=== PATIENT | female | born 1945 | race Caucasian/White ===

== ENCOUNTER 2024-06-05 14:46 | Inpatient (IN) | payer MEDICARE, MEDICAID ==
[~2024-06-05] VITALS: Ht 152.4 cm; Wt 47.0 kg
[2024-06-05] MEDS ORDERED: LOSA-382 PO (15:15)
[2024-06-05] MEDS ORDERED: FURO40TA6 PO (15:15)
[2024-06-05] MEDS ORDERED: ALEN70TA65 PO (15:15)
[2024-06-05] MEDS ORDERED: ATOR40TA28 PO (15:15)
[2024-06-05] MEDS ORDERED: CARV12 PO (15:15)
[2024-06-05] MEDS ORDERED: EMPA25TA3 PO (15:15)
[2024-06-05] MEDS ORDERED: RISP-31 PO (15:15)
[2024-06-05] MEDS ORDERED: HYDR25TA84 PO (15:15)
[2024-06-05] MEDS ORDERED: GLIM-8 PO (15:15)
[2024-06-05] MEDS ORDERED: MIRA25TA PO (15:15)
[2024-06-05 15:42] LABS: BASOPHILS % (AUTO) 1.4 % (0.0-2.0); EOSINOPHILS % (AUTO) 3.5 % (1.0-6.0); HEMATOCRIT 40.2 % (36-46); HEMOGLOBIN 13.2 g/dL (12.0-16.0); LYMPHOCYTES # (AUTO) 1.2 K/uL (1.0-4.8); LYMPHOCYTES % (AUTO) 23.7 % (22.0-44.0); MEAN CORPUSCULAR HEMOGLOBIN 30.8 pg (26.0-34.0); MEAN CORPUSCULAR VOLUME 94 fL (80-100); MONOCYTES # (AUTO) 0.4 K/uL (0.1-1.0); MONOCYTES % (AUTO) 8.9 % (2.0-9.0); NEUTROPHILS # (AUTO) 3.1 K/uL (1.8-7.7); NEUTROPHILS % (AUTO) 62.5 % (40.0-70.0); PLATELET COUNT (AUTO) 237 K/uL (150-450); RED CELL DISTRIBUTION WIDTH 16.3 % (11.5-14.5)
[2024-06-05 16:04] LABS: ANION GAP 8 mmol/L (8-16); CALCIUM, TOTAL 8.8 mg/dL (8.8-10.5); CARBON DIOXIDE 26 mmol/L (22-29); CHLORIDE 98 mmol/L (98-107); CREATININE 0.65 mg/dL (0.60-1.30); GLOMERULAR FILTR. RATE CALC > 60 mL/min (>60); GLUCOSE,RANDOM 350 mg/dL (70-110); POTASSIUM 3.9 mmol/L (3.5-5.1); SODIUM SERUM 132 mmol/L (136-145); UREA NITROGEN, BLOOD 19 mg/dL (7-18)
[2024-06-05 16:05] LABS: ALANINE AMINOTRANSFERASE 18 U/L (12-78); ALBUMIN 2.6 g/dL (3.4-5.0); ALKALINE PHOSPHATASE 275 U/L (46-116); ASPARTATE AMINOTRANSFERASE 18 U/L (15-37); BILIRUBIN,TOTAL 0.4 mg/dL (0.1-1.0); CREATINE KINASE, TOTAL ONLY 45 U/L (26-192); TOTAL PROTEIN, SERUM 7.1 g/dL (6.4-8.2)
[2024-06-05 16:10] LABS: THYROID STIMULATING HORMONE 0.46 uIU/mL (0.36-3.74)
[2024-06-05 16:20] LABS: TROPONIN I-HIGH SENSITIVITY 6 ng/L (<51)
[2024-06-05 16:24] LABS: B-TYPE NATRIURETIC PEPTIDE 28 pg/mL (0-100)
[2024-06-05 19:14] LABS: APPEARANCE,URINE CLEAR (CLEAR); BILIRUBIN,URINE NEGATIVE (NEGATIVE); COLOR,URINE COLORLESS (YELLOW); GLUCOSE, URINE (UA) >=1000 mg/dL (NEGATIVE); KETONES,URINE NEGATIVE (NEGATIVE); LEUKOCYTE ESTERASE ,URINE NEGATIVE (NEGATIVE); NITRATE,URINE NEGATIVE (NEGATIVE); OCCULT BLOOD,URINE NEGATIVE (NEGATIVE); PROTEIN,URINE NEGATIVE (NEGATIVE); SPECIFIC GRAVITIY, URINE 1.014 (1.003-1.030); UROBILINOGEN,URINE <=1.0 mg/dL (<=1.0)
[2024-06-05] MEDS: LORazepam 2 MG TABLET PO PRN (19:31)
[2024-06-05] MEDS: HALOPERIDOL 5 MG TABLET PO PRN (19:32)
[2024-06-05] MEDS: HydrALAZINE HCL 25 MG TABLET PO ONE (19:32)
[2024-06-05 19:45] LABS: BACTERIA,URINE None Seen /HPF (None Seen); RBC,URINE 0-2 /HPF (0-2); WBC,URINE 0-2 /HPF (0-5)
[2024-06-05] MEDS: ZOLPIDEM TARTRATE 10 MG TABLET PO PRN (20:44)
[2024-06-06] MEDS: HydrALAZINE HCL 25 MG TABLET PO ONE (05:19)
[2024-06-06] MEDS: LOSARTAN POTASSIUM 50 MG TABLET PO ONE (05:20)
[2024-06-06 05:58] LABS: HEMOGLOBIN A1C 10.7 % (3.8-5.6)
[2024-06-06 06:08] LABS: CHOL/HDL RATIO 2.1 (3.9-5.7)
[2024-06-06] MEDS: CARVEDILOL 6.25 MG TABLET PO ONE (07:14)
[2024-06-06 11:32] LABS: BASOPHILS % (AUTO) 0.9 % (0.0-2.0); EOSINOPHILS % (AUTO) 2.1 % (1.0-6.0); HEMATOCRIT 44.7 % (36-46); HEMOGLOBIN 14.6 g/dL (12.0-16.0); LYMPHOCYTES # (AUTO) 0.9 K/uL (1.0-4.8); LYMPHOCYTES % (AUTO) 14.5 % (22.0-44.0); MEAN CORPUSCULAR HEMOGLOBIN 30.7 pg (26.0-34.0); MEAN CORPUSCULAR HGB CONC 32.7 G/dL (31.0-37.0); MEAN CORPUSCULAR VOLUME 94 fL (80-100); MONOCYTES # (AUTO) 0.3 K/uL (0.1-1.0); MONOCYTES % (AUTO) 4.6 % (2.0-9.0); NEUTROPHILS # (AUTO) 4.6 K/uL (1.8-7.7); NEUTROPHILS % (AUTO) 77.9 % (40.0-70.0); PLATELET COUNT (AUTO) 270 K/uL (150-450); RED BLOOD CELL COUNT(AUTO) 4.77 MIL/uL (4.00-5.20); RED CELL DISTRIBUTION WIDTH 15.7 % (11.5-14.5); WHITE BLOOD COUNT (AUTO) 5.9 K/uL (4.5-11.0)
[2024-06-06 13:14] LABS: ANION GAP 6 mmol/L (8-16); CALCIUM, TOTAL 9.1 mg/dL (8.8-10.5); CARBON DIOXIDE 29 mmol/L (22-29); CHLORIDE 96 mmol/L (98-107); CREATININE 0.77 mg/dL (0.60-1.30); GLOMERULAR FILTR. RATE CALC > 60 mL/min (>60); POTASSIUM 4.3 mmol/L (3.5-5.1); SODIUM SERUM 131 mmol/L (136-145); UREA NITROGEN, BLOOD 18 mg/dL (7-18)
[2024-06-06 13:16] LABS: GLUCOSE,RANDOM 424 mg/dL (70-110)
[2024-06-06] MEDS: INSULIN REGULAR, HUMAN 100 UNITS/ML IVP ONE (14:21)
[2024-06-06 14:28] LABS: COVID AG,FIA SOURCE NASAL SWAB
[2024-06-06 15:02] LABS: SARS-COV2 (COVID) ANTIGEN,FIA Negative (Negative)
[2024-06-06] MEDS ORDERED: DEXTROSE 50%-WATER 25 GM/50 ML SYRINGE IVP PRN (19:00)
[2024-06-06 19:21] LABS: GLUCOMETER DEV NAME(LOC) ERT.6; GLUCOSE,POINT OF CARE 285 MG/DL (70-110)
[2024-06-06 19:21] LABS: GLUCOMETER DEV NAME(LOC) ERT.6; GLUCOSE,POINT OF CARE 551 MG/DL (70-110)
[2024-06-06 22:37] VITALS: RESP 18
[2024-06-06] MEDS: INSULIN LISPRO 100 UNITS/ML SQ PRN (23:15)
[2024-06-06 23:26] LABS: GLUCOMETER DEV NAME(LOC) 3E.I 2; GLUCOSE,POINT OF CARE 374 MG/DL (70-110)
[2024-06-07 05:40] LABS: GLUCOMETER DEV NAME(LOC) 3E.I 2; GLUCOSE,POINT OF CARE 187 MG/DL (70-110)
[2024-06-07 09:00] VITALS: BP 121/60; PULSE 69; RESP 18; TEMP 98; O2SAT 98
[2024-06-07 11:26] LABS: GLUCOMETER DEV NAME(LOC) 3E.I 2; GLUCOSE,POINT OF CARE 468 MG/DL (70-110)
[2024-06-07] MEDS ORDERED: NICOTINE 14 MG/24 HOUR PATCH TD PRN (11:45)
[2024-06-07] MEDS ORDERED: ONDANSETRON 4 MG TABLET PO PRN (11:45)
[2024-06-07] MEDS ORDERED: CloNIDine HCL 0.1 MG TABLET PO PRN (11:45)
[2024-06-07] MEDS ORDERED: PETROLATUM,WHITE 28 GM JELLY TP PRN (11:45)
[2024-06-07] MEDS: INSULIN LISPRO 100 UNITS/ML SQ PRN (11:58)
[2024-06-07] MEDS: HydrALAZINE HCL 25 MG TABLET PO SCH (13:00)
[2024-06-07 13:36] LABS: GLUCOMETER DEV NAME(LOC) 3E.I 2; GLUCOSE,POINT OF CARE 406 MG/DL (70-110)
[2024-06-07 14:08] VITALS: BP 148/97; PULSE 89; RESP 18; O2SAT 98
[2024-06-07] MEDS: LORazepam 0.5 MG TABLET PO PRN (14:09)
[2024-06-07] MEDS: RisperiDONE 0.5 MG TABLET PO SCH (14:54)
[2024-06-07] MEDS: INSULIN LISPRO 100 UNITS/ML SQ ONE (16:03)
[2024-06-07 17:06] LABS: GLUCOMETER DEV NAME(LOC) 3E.I 2; GLUCOSE,POINT OF CARE 118 MG/DL (70-110)
[2024-06-07] MEDS: CARVEDILOL 12.5 MG TABLET PO SCH (17:59)
[2024-06-07 20:31] LABS: GLUCOMETER DEV NAME(LOC) 3E.I 2; GLUCOSE,POINT OF CARE 147 MG/DL (70-110)
[2024-06-08 05:35] LABS: GLUCOMETER DEV NAME(LOC) 3E.I 2; GLUCOSE,POINT OF CARE 270 MG/DL (70-110)
[2024-06-08] MEDS: GLIMEPIRIDE 4 MG TABLET PO SCH (06:35)
[2024-06-08 09:01] VITALS: BP 146/65; PULSE 85; RESP 18; TEMP 97.9; O2SAT 97
[2024-06-08] MEDS: LOSARTAN POTASSIUM 50 MG TABLET PO SCH (09:26)
[2024-06-08] MEDS: EMPAGLIFLOZIN 25 MG TABLET PO SCH (09:26)
[2024-06-08] MEDS: ATORVASTATIN CALCIUM 40 MG TABLET PO SCH (09:31)
[2024-06-08] MEDS: FUROSEMIDE 40 MG TABLET PO SCH (09:31)
[2024-06-08 11:41] LABS: GLUCOMETER DEV NAME(LOC) 3EX.2; GLUCOSE,POINT OF CARE 409 MG/DL (70-110)
[2024-06-08 13:38] LABS: HEMOGLOBIN A1C 10.2 % (3.8-5.6)
[2024-06-08 14:00] LABS: THYROID STIMULATING HORMONE 0.64 uIU/mL (0.36-3.74)
[2024-06-08 16:41] VITALS: BP 141/72; PULSE 78; RESP 18; TEMP 97.5; O2SAT 98
[2024-06-08 16:45] LABS: GLUCOMETER DEV NAME(LOC) 3EX.2; GLUCOSE,POINT OF CARE 236 MG/DL (70-110)
[2024-06-08 21:30] VITALS: BP 110/60; PULSE 69; RESP 17; TEMP 98; O2SAT 97
[2024-06-08] MEDS: IBUPROFEN 400 MG TABLET PO PRN (21:34)
[2024-06-08 21:51] LABS: GLUCOMETER DEV NAME(LOC) 3E.I 2; GLUCOSE,POINT OF CARE 244 MG/DL (70-110)
[2024-06-09 07:00] LABS: GLUCOMETER DEV NAME(LOC) 3E.I 2; GLUCOSE,POINT OF CARE 225 MG/DL (70-110)
[2024-06-09 07:32] LABS: HEMOGLOBIN A1C 10.4 % (3.8-5.6)
[2024-06-09 08:01] LABS: CHOL/HDL RATIO 2.7 (3.9-5.7); THYROID STIMULATING HORMONE 0.72 uIU/mL (0.36-3.74)
[2024-06-09 08:24] VITALS: BP 149/73; PULSE 75; RESP 18; TEMP 97.6; O2SAT 96
[2024-06-09 11:46] LABS: GLUCOMETER DEV NAME(LOC) 3E.I 2; GLUCOSE,POINT OF CARE 368 MG/DL (70-110)
[2024-06-09 11:48] LABS: APPEARANCE,URINE CLEAR (CLEAR); BILIRUBIN,URINE NEGATIVE (NEGATIVE); COLOR,URINE COLORLESS (YELLOW); GLUCOSE, URINE (UA) >=1000 mg/dL (NEGATIVE); KETONES,URINE NEGATIVE (NEGATIVE); LEUKOCYTE ESTERASE ,URINE NEGATIVE (NEGATIVE); NITRATE,URINE NEGATIVE (NEGATIVE); OCCULT BLOOD,URINE NEGATIVE (NEGATIVE); PROTEIN,URINE NEGATIVE (NEGATIVE); SPECIFIC GRAVITIY, URINE 1.018 (1.003-1.030); UROBILINOGEN,URINE <=1.0 mg/dL (<=1.0)
[2024-06-09 12:01] LABS: BACTERIA,URINE None Seen /HPF (None Seen); RBC,URINE None Seen /HPF (0-2); SQUAMOUS EPITHELIAL CELL,UR Few /LPF (None Seen); WBC,URINE None Seen /HPF (0-5)
[2024-06-09 12:04] LABS: ALCOHOL, URINE DRUG SCREEN NEGATIVE (NEGATIVE); AMPHET/METH SCREEN,URINE NEGATIVE (NEGATIVE); BARBITURATE SCREEN, URINE NEGATIVE (NEGATIVE); BENZODIAZEPINES SCREEN,URINE NEGATIVE (NEGATIVE); CANNABINOID SCREEN,URINE NEGATIVE (NEGATIVE); COCAINE SCREEN,URINE NEGATIVE (NEGATIVE); METHADONE SCREEN, URINE NEGATIVE (NEGATIVE); OPIATE SCREEN,URINE NEGATIVE (NEGATIVE); PHENCYCLIDINE SCREEN,URINE NEGATIVE (NEGATIVE)
[2024-06-09 13:30] VITALS: BP 115/62; PULSE 69; RESP 18; O2SAT 99
[2024-06-09] MEDS: MAG HYDROX/ALUMINUM HYD/SIMETH ES 30 ML SUSPENSION UDCUP PO PRN (13:47)
[2024-06-09 14:08] VITALS: BP 115/62; PULSE 69; RESP 18; O2SAT 99
[2024-06-09] MEDS: ACETAMINOPHEN 325 MG TABLET PO PRN (14:13)
[2024-06-09 15:13] VITALS: RESP 16
[2024-06-09] MEDS: GLIMEPIRIDE 4 MG TABLET PO SCH (16:22)
[2024-06-09 16:45] LABS: GLUCOMETER DEV NAME(LOC) 3E.I 2; GLUCOSE,POINT OF CARE 222 MG/DL (70-110)
[2024-06-09 17:43] VITALS: BP 145/76; PULSE 73; RESP 18
[2024-06-09 21:05] VITALS: BP 123/51; PULSE 74; RESP 18; TEMP 97.8; O2SAT 98
[2024-06-09 21:41] LABS: GLUCOMETER DEV NAME(LOC) 3E.I 2; GLUCOSE,POINT OF CARE 154 MG/DL (70-110)
[2024-06-09] MEDS: ZOLPIDEM TARTRATE 5 MG TABLET PO PRN (22:23)
[2024-06-10 06:45] LABS: GLUCOMETER DEV NAME(LOC) 3E.I 2; GLUCOSE,POINT OF CARE 146 MG/DL (70-110)
[2024-06-10 08:54] VITALS: BP 119/52; PULSE 64; RESP 18; TEMP 97.4; O2SAT 97
[2024-06-10 09:43] VITALS: BP 119/52; PULSE 64; RESP 18; TEMP 97.4
[2024-06-10 10:43] VITALS: BP 121/67; PULSE 72; RESP 17; TEMP 98
[2024-06-10 12:01] LABS: GLUCOMETER DEV NAME(LOC) 3EX.2; GLUCOSE,POINT OF CARE 321 MG/DL (70-110)
[2024-06-10 16:21] LABS: GLUCOMETER DEV NAME(LOC) 3EX.2; GLUCOSE,POINT OF CARE 114 MG/DL (70-110)
[2024-06-10 21:31] LABS: GLUCOMETER DEV NAME(LOC) 3E.I 2; GLUCOSE,POINT OF CARE 290 MG/DL (70-110)
[2024-06-10 22:48] VITALS: BP 128/68; PULSE 77; RESP 18; TEMP 97.6
[2024-06-11 00:30] VITALS: BP 123/75; PULSE 75; RESP 18; O2SAT 96
[2024-06-11 06:36] LABS: GLUCOMETER DEV NAME(LOC) 3E.I 2; GLUCOSE,POINT OF CARE 161 MG/DL (70-110)
[2024-06-11 09:01] VITALS: BP 132/60; PULSE 72; RESP 18; TEMP 98.1; O2SAT 97
[2024-06-11 11:51] LABS: GLUCOMETER DEV NAME(LOC) 3EX.2; GLUCOSE,POINT OF CARE 256 MG/DL (70-110)
[2024-06-11 17:15] LABS: GLUCOMETER DEV NAME(LOC) 3E.I 2; GLUCOSE,POINT OF CARE 305 MG/DL (70-110)
[2024-06-11 20:16] LABS: GLUCOMETER DEV NAME(LOC) 3E.I 2; GLUCOSE,POINT OF CARE 221 MG/DL (70-110)
[2024-06-11 22:03] VITALS: BP 125/67; PULSE 79; RESP 18; TEMP 97.9
[2024-06-12] MEDS: LOPERAMIDE HCL 2 MG CAPSULE PO PRN (02:58)
[2024-06-12 05:41] LABS: GLUCOMETER DEV NAME(LOC) 3E.I 2; GLUCOSE,POINT OF CARE 248 MG/DL (70-110)
[2024-06-12 08:48] VITALS: BP 143/75; PULSE 69; RESP 18; TEMP 97.4; O2SAT 98
[2024-06-12 11:50] LABS: GLUCOMETER DEV NAME(LOC) 3EX.2; GLUCOSE,POINT OF CARE 166 MG/DL (70-110)
[2024-06-12 16:46] LABS: GLUCOMETER DEV NAME(LOC) 3EX.2; GLUCOSE,POINT OF CARE 269 MG/DL (70-110)
[2024-06-12 20:58] VITALS: BP 122/63; PULSE 72; RESP 18; TEMP 98.2; O2SAT 97
[2024-06-12 22:46] LABS: GLUCOMETER DEV NAME(LOC) 3EX.2; GLUCOSE,POINT OF CARE 238 MG/DL (70-110)
[2024-06-13 05:56] LABS: GLUCOMETER DEV NAME(LOC) 3E.I 2; GLUCOSE,POINT OF CARE 125 MG/DL (70-110)
[2024-06-13 08:21] VITALS: BP 150/58; PULSE 66; RESP 18; TEMP 97.8; O2SAT 98
[2024-06-13 11:36] LABS: GLUCOMETER DEV NAME(LOC) 3E.I 2; GLUCOSE,POINT OF CARE 306 MG/DL (70-110)
[2024-06-13 13:09] VITALS: BP 122/61; PULSE 71
[2024-06-13 16:31] LABS: GLUCOMETER DEV NAME(LOC) 3E.I 2; GLUCOSE,POINT OF CARE 325 MG/DL (70-110)
[2024-06-13 20:57] VITALS: BP 113/61; PULSE 75; RESP 18; TEMP 97.8; O2SAT 98
[2024-06-13 21:06] LABS: GLUCOMETER DEV NAME(LOC) 3E.I 2; GLUCOSE,POINT OF CARE 179 MG/DL (70-110)
[2024-06-14 06:11] LABS: GLUCOMETER DEV NAME(LOC) 3E.I 2; GLUCOSE,POINT OF CARE 122 MG/DL (70-110)
[2024-06-14 10:23] VITALS: RESP 18
[2024-06-14 10:56] VITALS: BP_SYST 165; BP_SYST 175; BP_DIAS 64; BP_DIAS 65; PULSE 66; RESP 16; RESP 19; TEMP 98; TEMP 98.2; O2SAT 98
[2024-06-14 11:23] VITALS: RESP 18
[2024-06-14 11:40] LABS: GLUCOMETER DEV NAME(LOC) 3EX.2; GLUCOSE,POINT OF CARE 293 MG/DL (70-110)
[2024-06-14 16:45] VITALS: BP 106/55; RESP 18
[2024-06-14 16:51] LABS: GLUCOMETER DEV NAME(LOC) 3EX.2; GLUCOSE,POINT OF CARE 212 MG/DL (70-110)
[2024-06-14 20:10] LABS: GLUCOMETER DEV NAME(LOC) 3E.I 2; GLUCOSE,POINT OF CARE 157 MG/DL (70-110)
[2024-06-14 21:26] VITALS: BP 145/56; PULSE 71; RESP 18; TEMP 97.9
[2024-06-15 05:41] LABS: GLUCOMETER DEV NAME(LOC) 3E.I 2; GLUCOSE,POINT OF CARE 122 MG/DL (70-110)
[2024-06-15 09:39] VITALS: BP 172/72; PULSE 71; RESP 18; TEMP 97.8; O2SAT 99
[2024-06-15 11:39] VITALS: BP 155/62; PULSE 69; RESP 18; O2SAT 99
[2024-06-15 11:45] LABS: GLUCOMETER DEV NAME(LOC) 3E.I 2; GLUCOSE,POINT OF CARE 328 MG/DL (70-110)
[2024-06-15 12:39] VITALS: RESP 18
[2024-06-15 16:55] LABS: GLUCOMETER DEV NAME(LOC) 3EX.2; GLUCOSE,POINT OF CARE 135 MG/DL (70-110)
[2024-06-15 20:25] VITALS: BP 133/76; PULSE 74; RESP 18; TEMP 97.6; O2SAT 98
[2024-06-15 20:50] LABS: GLUCOMETER DEV NAME(LOC) 3E.I 2; GLUCOSE,POINT OF CARE 164 MG/DL (70-110)
[2024-06-16 07:01] LABS: GLUCOMETER DEV NAME(LOC) 3E.I 2; GLUCOSE,POINT OF CARE 200 MG/DL (70-110)
[2024-06-16 08:56] VITALS: BP 143/58; PULSE 90; RESP 16; TEMP 96.7; O2SAT 95
[2024-06-16 11:50] LABS: GLUCOMETER DEV NAME(LOC) 3E.I 2; GLUCOSE,POINT OF CARE 317 MG/DL (70-110)
[2024-06-16 17:30] LABS: GLUCOMETER DEV NAME(LOC) 3E.I 2; GLUCOSE,POINT OF CARE 115 MG/DL (70-110)
[2024-06-16 20:40] LABS: GLUCOMETER DEV NAME(LOC) 3E.I 2; GLUCOSE,POINT OF CARE 192 MG/DL (70-110)
[2024-06-16 21:47] VITALS: RESP 18
[2024-06-17 06:16] LABS: GLUCOMETER DEV NAME(LOC) 3E.I 2; GLUCOSE,POINT OF CARE 112 MG/DL (70-110)
[2024-06-17 08:29] VITALS: BP 162/65; PULSE 67; RESP 16; TEMP 97.6; O2SAT 97
[2024-06-17 12:35] LABS: GLUCOMETER DEV NAME(LOC) 3E.I 2; GLUCOSE,POINT OF CARE 387 MG/DL (70-110)
[2024-06-17 16:36] LABS: GLUCOMETER DEV NAME(LOC) 3E.I 2; GLUCOSE,POINT OF CARE 206 MG/DL (70-110)
[2024-06-17 20:01] LABS: GLUCOMETER DEV NAME(LOC) 3E.I 2; GLUCOSE,POINT OF CARE 122 MG/DL (70-110)
[2024-06-17 21:17] VITALS: BP 152/60; PULSE 72; RESP 18; TEMP 97.4; O2SAT 97
[2024-06-18 06:16] LABS: GLUCOMETER DEV NAME(LOC) 3EX.2; GLUCOSE,POINT OF CARE 256 MG/DL (70-110)
[2024-06-18 08:40] VITALS: BP 123/66; PULSE 67; RESP 17; TEMP 97.5; O2SAT 97
[2024-06-18 11:46] LABS: GLUCOMETER DEV NAME(LOC) 3EX.2; GLUCOSE,POINT OF CARE 163 MG/DL (70-110)
[2024-06-18] MEDS: MAGNESIUM HYDROXIDE SUSPENSION 30 ML UDCUP PO PRN (15:30)
[2024-06-18 17:30] LABS: GLUCOMETER DEV NAME(LOC) 3EX.2; GLUCOSE,POINT OF CARE 205 MG/DL (70-110)
[2024-06-18 20:26] LABS: GLUCOMETER DEV NAME(LOC) 3EX.2; GLUCOSE,POINT OF CARE 184 MG/DL (70-110)
[2024-06-18 20:46] VITALS: BP 159/41; PULSE 58; RESP 18; TEMP 97.6; O2SAT 98
[2024-06-19 04:35] VITALS: BP 181/92; PULSE 61; RESP 18; TEMP 97.6; O2SAT 98
[2024-06-19 05:35] VITALS: RESP 18
[2024-06-19 05:36] VITALS: BP 141/57; PULSE 58; RESP 18; TEMP 97.7; O2SAT 98
[2024-06-19 06:21] LABS: GLUCOMETER DEV NAME(LOC) 3EX.2; GLUCOSE,POINT OF CARE 91 MG/DL (70-110)
[2024-06-19 08:49] VITALS: BP 153/85; PULSE 74; RESP 18; TEMP 98; O2SAT 95
[2024-06-19 11:56] LABS: GLUCOMETER DEV NAME(LOC) 3EX.2; GLUCOSE,POINT OF CARE 348 MG/DL (70-110)
[2024-06-19 13:42] VITALS: BP 146/82; PULSE 78; RESP 19; TEMP 98; O2SAT 96
[2024-06-19 17:21] LABS: GLUCOMETER DEV NAME(LOC) 3EX.2; GLUCOSE,POINT OF CARE 132 MG/DL (70-110)
[2024-06-19 20:16] LABS: GLUCOMETER DEV NAME(LOC) 3EX.2; GLUCOSE,POINT OF CARE 149 MG/DL (70-110)
[2024-06-19 21:12] VITALS: RESP 18
[2024-06-20 06:30] LABS: GLUCOMETER DEV NAME(LOC) 3EX.2; GLUCOSE,POINT OF CARE 199 MG/DL (70-110)
[2024-06-20 08:36] VITALS: BP 138/59; PULSE 78; RESP 18; TEMP 98.4; O2SAT 98
[2024-06-20 16:31] LABS: GLUCOMETER DEV NAME(LOC) 3EX.2; GLUCOSE,POINT OF CARE 340 MG/DL (70-110)
[2024-06-20] MEDS ORDERED: RisperiDONE 0.5 MG TABLET PO SCH (17:00)
[2024-06-20] MEDS: RisperiDONE 0.5 MG TABLET PO SCH (17:00)
[2024-06-20 20:30] LABS: GLUCOMETER DEV NAME(LOC) 3EX.2; GLUCOSE,POINT OF CARE 89 MG/DL (70-110)
[2024-06-20 20:38] VITALS: BP 132/71; PULSE 81; RESP 19; TEMP 97.9; O2SAT 98
[2024-06-21 06:00] LABS: GLUCOMETER DEV NAME(LOC) 3EX.2; GLUCOSE,POINT OF CARE 82 MG/DL (70-110)
[2024-06-21 11:35] LABS: GLUCOMETER DEV NAME(LOC) 3EX.2; GLUCOSE,POINT OF CARE 280 MG/DL (70-110)
[2024-06-21 16:36] LABS: GLUCOMETER DEV NAME(LOC) 3EX.2; GLUCOSE,POINT OF CARE 89 MG/DL (70-110)
[2024-06-21 20:27] VITALS: RESP 19
[2024-06-21 21:35] LABS: GLUCOMETER DEV NAME(LOC) 3EX.2; GLUCOSE,POINT OF CARE 223 MG/DL (70-110)
[2024-06-22 06:20] LABS: GLUCOMETER DEV NAME(LOC) 3EX.2; GLUCOSE,POINT OF CARE 156 MG/DL (70-110)
[2024-06-22 09:06] VITALS: BP 161/58; PULSE 63; RESP 18; TEMP 97.8; O2SAT 99
[2024-06-22 11:31] LABS: GLUCOMETER DEV NAME(LOC) 3EX.2; GLUCOSE,POINT OF CARE 230 MG/DL (70-110)
[2024-06-22 16:15] LABS: GLUCOMETER DEV NAME(LOC) 3EX.2; GLUCOSE,POINT OF CARE 278 MG/DL (70-110)
[2024-06-22 21:30] LABS: GLUCOMETER DEV NAME(LOC) 3EX.2; GLUCOSE,POINT OF CARE 51 MG/DL (70-110)
[2024-06-22 21:38] VITALS: BP 152/72; PULSE 66; RESP 18; TEMP 98.7; O2SAT 97
[2024-06-22 22:11] LABS: GLUCOMETER DEV NAME(LOC) 3EX.2; GLUCOSE,POINT OF CARE 72 MG/DL (70-110)
[2024-06-23 06:26] LABS: GLUCOMETER DEV NAME(LOC) 3EX.2; GLUCOSE,POINT OF CARE 242 MG/DL (70-110)
[2024-06-23 08:59] VITALS: BP 157/60; PULSE 70; RESP 18; TEMP 97.9; O2SAT 95
[2024-06-23 12:11] LABS: GLUCOMETER DEV NAME(LOC) 3EX.2; GLUCOSE,POINT OF CARE 182 MG/DL (70-110)
[2024-06-23 20:05] VITALS: BP 143/67; PULSE 66; RESP 18; TEMP 97.9; O2SAT 98
[2024-06-23 21:51] LABS: GLUCOMETER DEV NAME(LOC) 3EX.2; GLUCOSE,POINT OF CARE 259 MG/DL (70-110)
[2024-06-24 06:21] LABS: GLUCOMETER DEV NAME(LOC) 3EX.2; GLUCOSE,POINT OF CARE 58 MG/DL (70-110)
[2024-06-24 06:21] LABS: GLUCOMETER DEV NAME(LOC) 3EX.2; GLUCOSE,POINT OF CARE 146 MG/DL (70-110)
[2024-06-24 08:51] VITALS: BP 169/71; PULSE 73; RESP 18; TEMP 98; O2SAT 97
[2024-06-24 11:51] LABS: GLUCOMETER DEV NAME(LOC) 3EX.2; GLUCOSE,POINT OF CARE 277 MG/DL (70-110)
[2024-06-24 14:42] VITALS: BP 124/73
[2024-06-24 16:50] LABS: GLUCOMETER DEV NAME(LOC) 3EX.2; GLUCOSE,POINT OF CARE 211 MG/DL (70-110)
[2024-06-24 20:16] LABS: GLUCOMETER DEV NAME(LOC) 3EX.2; GLUCOSE,POINT OF CARE 113 MG/DL (70-110)
[2024-06-24 21:08] VITALS: BP 129/49; PULSE 73; RESP 18; TEMP 97.5; O2SAT 96
[2024-06-25 05:50] LABS: GLUCOMETER DEV NAME(LOC) 3E.I 2; GLUCOSE,POINT OF CARE 211 MG/DL (70-110)
[2024-06-25 08:00] VITALS: BP 158/61; PULSE 70; RESP 18; TEMP 98.2; O2SAT 98
[2024-06-25 11:41] LABS: GLUCOMETER DEV NAME(LOC) 3EX.2; GLUCOSE,POINT OF CARE 189 MG/DL (70-110)
[2024-06-25 13:01] VITALS: BP 136/64; PULSE 78; RESP 18; O2SAT 99
[2024-06-25 16:45] LABS: GLUCOMETER DEV NAME(LOC) 3EX.2; GLUCOSE,POINT OF CARE 210 MG/DL (70-110)
[2024-06-25 19:55] LABS: GLUCOMETER DEV NAME(LOC) 3E.I 2; GLUCOSE,POINT OF CARE 114 MG/DL (70-110)
[2024-06-25 20:11] VITALS: BP 154/56; PULSE 69; RESP 18; TEMP 98; O2SAT 97
[2024-06-26 06:31] LABS: GLUCOMETER DEV NAME(LOC) 3E.I 2; GLUCOSE,POINT OF CARE 147 MG/DL (70-110)
[2024-06-26 08:40] VITALS: BP 135/90; PULSE 76; RESP 16; TEMP 97.4; O2SAT 95
[2024-06-26 12:05] LABS: GLUCOMETER DEV NAME(LOC) 3E.I 2; GLUCOSE,POINT OF CARE 210 MG/DL (70-110)
[2024-06-26 16:56] LABS: GLUCOMETER DEV NAME(LOC) 3E.I 2; GLUCOSE,POINT OF CARE 231 MG/DL (70-110)
[2024-06-26 17:20] VITALS: BP 134/59; RESP 17; O2SAT 96
[2024-06-26 20:00] LABS: GLUCOMETER DEV NAME(LOC) 3E.I 2; GLUCOSE,POINT OF CARE 128 MG/DL (70-110)
[2024-06-26 21:12] VITALS: BP 156/69; PULSE 70; RESP 18; TEMP 98.3; O2SAT 97
[2024-06-27 06:06] LABS: GLUCOMETER DEV NAME(LOC) 3EX.2; GLUCOSE,POINT OF CARE 99 MG/DL (70-110)
[2024-06-27 09:00] VITALS: BP 154/73; PULSE 64; RESP 18; TEMP 98.1; O2SAT 96
[2024-06-27 12:40] VITALS: BP 132/64; RESP 17; O2SAT 98
[2024-06-27 16:44] VITALS: BP 143/65; RESP 18; O2SAT 96
[2024-06-27 20:51] VITALS: PULSE 95; RESP 18; TEMP 97.5; O2SAT 95
[2024-06-27 22:35] VITALS: BP 138/72; PULSE 89; RESP 18; TEMP 97.7
[2024-06-27 23:35] VITALS: RESP 18
[2024-06-28 09:45] VITALS: BP 161/68; PULSE 60; RESP 18; TEMP 97.5; O2SAT 97
[2024-06-28 11:41] LABS: GLUCOMETER DEV NAME(LOC) 3E.I 2; GLUCOSE,POINT OF CARE 200 MG/DL (70-110)
[2024-06-28 16:30] LABS: GLUCOMETER DEV NAME(LOC) 3E.I 2; GLUCOSE,POINT OF CARE 153 MG/DL (70-110)
[2024-06-28 17:47] VITALS: BP 132/62; PULSE 95
[2024-06-28 22:22] VITALS: RESP 18
[2024-06-29 06:46] LABS: GLUCOMETER DEV NAME(LOC) 3EX.2; GLUCOSE,POINT OF CARE 61 MG/DL (70-110)
[2024-06-29 06:46] LABS: GLUCOMETER DEV NAME(LOC) 3EX.2; GLUCOSE,POINT OF CARE 137 MG/DL (70-110)
[2024-06-29 08:11] VITALS: BP 138/75; PULSE 69; RESP 18; TEMP 97
[2024-06-29 12:20] LABS: GLUCOMETER DEV NAME(LOC) 3EX.2; GLUCOSE,POINT OF CARE 287 MG/DL (70-110)
[2024-06-29 16:55] LABS: GLUCOMETER DEV NAME(LOC) 3EX.2; GLUCOSE,POINT OF CARE 175 MG/DL (70-110)
[2024-06-29 20:26] LABS: GLUCOMETER DEV NAME(LOC) 3EX.2; GLUCOSE,POINT OF CARE 178 MG/DL (70-110)
[2024-06-29 20:41] VITALS: BP 128/62; PULSE 71; RESP 19; TEMP 98.1; O2SAT 97
[2024-06-30 05:51] LABS: GLUCOMETER DEV NAME(LOC) 3EX.2; GLUCOSE,POINT OF CARE 83 MG/DL (70-110)
[2024-06-30 08:17] VITALS: BP 146/46; PULSE 74; RESP 18; TEMP 97.5; O2SAT 97
[2024-06-30 11:46] LABS: GLUCOMETER DEV NAME(LOC) 3EX.2; GLUCOSE,POINT OF CARE 186 MG/DL (70-110)
[2024-06-30 16:46] LABS: GLUCOMETER DEV NAME(LOC) 3EX.2; GLUCOSE,POINT OF CARE 181 MG/DL (70-110)
[2024-06-30 21:10] LABS: GLUCOMETER DEV NAME(LOC) 3EX.2; GLUCOSE,POINT OF CARE 130 MG/DL (70-110)
[2024-06-30 21:17] VITALS: RESP 18
[2024-07-01 05:51] LABS: GLUCOMETER DEV NAME(LOC) 3EX.2; GLUCOSE,POINT OF CARE 122 MG/DL (70-110)
[2024-07-01 08:33] VITALS: BP 130/86; PULSE 84; RESP 18; TEMP 98; O2SAT 97
[2024-07-01 11:41] LABS: GLUCOMETER DEV NAME(LOC) 3EX.2; GLUCOSE,POINT OF CARE 146 MG/DL (70-110)
[2024-07-01 17:06] LABS: GLUCOMETER DEV NAME(LOC) 3EX.2; GLUCOSE,POINT OF CARE 92 MG/DL (70-110)
[2024-07-01 20:31] VITALS: RESP 17
[2024-07-01 21:05] LABS: GLUCOMETER DEV NAME(LOC) 3EX.2; GLUCOSE,POINT OF CARE 180 MG/DL (70-110)
[2024-07-02 05:50] LABS: GLUCOMETER DEV NAME(LOC) 3EX.2; GLUCOSE,POINT OF CARE 95 MG/DL (70-110)
[2024-07-02 09:05] VITALS: BP 140/51; PULSE 58; RESP 18; TEMP 97.9; O2SAT 97
[2024-07-02 11:40] LABS: GLUCOMETER DEV NAME(LOC) 3EX.2; GLUCOSE,POINT OF CARE 150 MG/DL (70-110)
[2024-07-02 17:11] LABS: GLUCOMETER DEV NAME(LOC) 3EX.2; GLUCOSE,POINT OF CARE 126 MG/DL (70-110)
[2024-07-02 17:13] VITALS: BP 136/60; PULSE 69; RESP 18; TEMP 97.6; O2SAT 98
[2024-07-02 20:15] LABS: GLUCOMETER DEV NAME(LOC) 3EX.2; GLUCOSE,POINT OF CARE 160 MG/DL (70-110)
[2024-07-02 21:39] VITALS: BP 126/54; PULSE 98; RESP 18; TEMP 97.5; O2SAT 99
[2024-07-02 22:24] VITALS: BP 131/61; PULSE 89; RESP 18; TEMP 97.7
[2024-07-02 23:24] VITALS: RESP 18
[2024-07-03 05:41] LABS: GLUCOMETER DEV NAME(LOC) 3EX.2; GLUCOSE,POINT OF CARE 304 MG/DL (70-110)
[2024-07-03 12:05] LABS: GLUCOMETER DEV NAME(LOC) 3EX.2; GLUCOSE,POINT OF CARE 60 MG/DL (70-110)
[2024-07-03 13:10] LABS: GLUCOMETER DEV NAME(LOC) 3EX.2; GLUCOSE,POINT OF CARE 122 MG/DL (70-110)
[2024-07-03 13:11] VITALS: BP 138/54; PULSE 83; RESP 17; TEMP 96.4; O2SAT 98
[2024-07-03 17:31] LABS: GLUCOMETER DEV NAME(LOC) 3EX.2; GLUCOSE,POINT OF CARE 234 MG/DL (70-110)
[2024-07-03 21:05] LABS: GLUCOMETER DEV NAME(LOC) 3EX.2; GLUCOSE,POINT OF CARE 351 MG/DL (70-110)
[2024-07-03 21:39] VITALS: BP 160/58; PULSE 74; RESP 18; TEMP 97.3; O2SAT 96
[2024-07-04 05:41] LABS: GLUCOMETER DEV NAME(LOC) 3E.I 2; GLUCOSE,POINT OF CARE 89 MG/DL (70-110)
[2024-07-04 11:51] VITALS: BP 140/75; PULSE 65; RESP 17; TEMP 98.3; O2SAT 95
[2024-07-04 12:30] LABS: GLUCOMETER DEV NAME(LOC) 3E.I 2; GLUCOSE,POINT OF CARE 244 MG/DL (70-110)
[2024-07-04 17:36] LABS: GLUCOMETER DEV NAME(LOC) 3E.I 2; GLUCOSE,POINT OF CARE 102 MG/DL (70-110)
[2024-07-04 20:13] VITALS: BP 160/78; PULSE 65; RESP 18; TEMP 96.6; O2SAT 95
[2024-07-04 20:46] LABS: GLUCOMETER DEV NAME(LOC) 3E.I 2; GLUCOSE,POINT OF CARE 172 MG/DL (70-110)
[2024-07-05] VITALS (7 sets, daily range): BP systolic 138–163; BP diastolic 51–70; PULSE 61–78; RESP 16–18; TEMP 97.3–98.4; O2SAT 96–98
[2024-07-05 07:15] LABS: GLUCOMETER DEV NAME(LOC) 3E.I 2; GLUCOSE,POINT OF CARE 94 MG/DL (70-110)
[2024-07-05 16:51] LABS: GLUCOMETER DEV NAME(LOC) 3E.I 2; GLUCOSE,POINT OF CARE 189 MG/DL (70-110)
[2024-07-05 16:51] LABS: GLUCOMETER DEV NAME(LOC) 3E.I 2; GLUCOSE,POINT OF CARE 134 MG/DL (70-110)
[2024-07-05 22:15] LABS: GLUCOMETER DEV NAME(LOC) 3E.I 2; GLUCOSE,POINT OF CARE 130 MG/DL (70-110)
[2024-07-06 01:30] VITALS: BP 150/65; RESP 18
[2024-07-06 02:30] VITALS: BP 142/63; RESP 16
[2024-07-06 06:17] LABS: GLUCOMETER DEV NAME(LOC) 3E.I 2; GLUCOSE,POINT OF CARE 100 MG/DL (70-110)
[2024-07-06 08:39] VITALS: BP 126/60; PULSE 65; RESP 18; TEMP 98; O2SAT 97
[2024-07-06 11:35] LABS: GLUCOMETER DEV NAME(LOC) 3E.I 2; GLUCOSE,POINT OF CARE 229 MG/DL (70-110)
[2024-07-06 12:30] VITALS: BP 133/55; PULSE 75; RESP 16; TEMP 98.6; O2SAT 98
[2024-07-06 14:35] LABS: GLUCOMETER DEV NAME(LOC) 3E.I 2; GLUCOSE,POINT OF CARE 66 MG/DL (70-110)
[2024-07-06 14:51] LABS: GLUCOMETER DEV NAME(LOC) 3E.I 2; GLUCOSE,POINT OF CARE 79 MG/DL (70-110)
[2024-07-06 17:26] LABS: GLUCOMETER DEV NAME(LOC) 3E.I 2; GLUCOSE,POINT OF CARE 164 MG/DL (70-110)
[2024-07-06 17:53] VITALS: BP 122/55; PULSE 56; RESP 16; TEMP 98.2; O2SAT 95
[2024-07-06 20:38] VITALS: RESP 18
[2024-07-06 21:45] LABS: GLUCOMETER DEV NAME(LOC) 3E.I 2; GLUCOSE,POINT OF CARE 178 MG/DL (70-110)
[2024-07-07 06:11] LABS: GLUCOMETER DEV NAME(LOC) 3E.I 2; GLUCOSE,POINT OF CARE 99 MG/DL (70-110)
[2024-07-07 10:40] VITALS: BP 146/60; PULSE 70; RESP 18; TEMP 97.8; O2SAT 97
[2024-07-07 11:46] LABS: GLUCOMETER DEV NAME(LOC) 3E.I 2; GLUCOSE,POINT OF CARE 309 MG/DL (70-110)
[2024-07-07] MEDS: GuaiFENesin/D-METHORPHAN [SUGAR-FREE] 200-20MG/10 ML SYRUP UDCUP PO PRN (15:56)
[2024-07-07 17:30] LABS: GLUCOMETER DEV NAME(LOC) 3E.I 2; GLUCOSE,POINT OF CARE 165 MG/DL (70-110)
[2024-07-07 20:56] LABS: GLUCOMETER DEV NAME(LOC) 3E.I 2; GLUCOSE,POINT OF CARE 187 MG/DL (70-110)
[2024-07-07 21:03] VITALS: BP 148/68; PULSE 66; RESP 18; TEMP 98.2; O2SAT 97
[2024-07-08] VITALS (7 sets, daily range): BP systolic 120–135; BP diastolic 55–76; PULSE 66–78; RESP 18; TEMP 97.1–97.6; O2SAT 96–97
[2024-07-08 06:45] LABS: GLUCOMETER DEV NAME(LOC) 3E.I 2; GLUCOSE,POINT OF CARE 80 MG/DL (70-110)
[2024-07-08 06:45] LABS: GLUCOMETER DEV NAME(LOC) 3E.I 2; GLUCOSE,POINT OF CARE 60 MG/DL (70-110)
[2024-07-08 11:31] LABS: GLUCOMETER DEV NAME(LOC) 3EX.2; GLUCOSE,POINT OF CARE 294 MG/DL (70-110)
[2024-07-08 17:25] LABS: GLUCOMETER DEV NAME(LOC) 3EX.2; GLUCOSE,POINT OF CARE 157 MG/DL (70-110)
[2024-07-08 20:59] LABS: GLUCOMETER DEV NAME(LOC) 3E.I 2; GLUCOSE,POINT OF CARE 84 MG/DL (70-110)
[2024-07-09 05:56] LABS: GLUCOMETER DEV NAME(LOC) 3E.I 2; GLUCOSE,POINT OF CARE 117 MG/DL (70-110)
[2024-07-09 08:19] VITALS: BP 159/82; PULSE 70; RESP 18; TEMP 97.6
[2024-07-09 12:21] LABS: GLUCOMETER DEV NAME(LOC) 3E.I 2; GLUCOSE,POINT OF CARE 139 MG/DL (70-110)
[2024-07-09 14:20] LABS: APPEARANCE,URINE CLEAR (CLEAR); BILIRUBIN,URINE NEGATIVE (NEGATIVE); COLOR,URINE COLORLESS (YELLOW); GLUCOSE, URINE (UA) >=1000 mg/dL (NEGATIVE); KETONES,URINE NEGATIVE (NEGATIVE); LEUKOCYTE ESTERASE ,URINE NEGATIVE (NEGATIVE); NITRATE,URINE NEGATIVE (NEGATIVE); OCCULT BLOOD,URINE NEGATIVE (NEGATIVE); PH,URINE 5.5 (5.0-8.0); PROTEIN,URINE NEGATIVE (NEGATIVE); SPECIFIC GRAVITIY, URINE 1.009 (1.003-1.030); UROBILINOGEN,URINE <=1.0 mg/dL (<=1.0)
[2024-07-09 14:25] LABS: BACTERIA,URINE None Seen /HPF (None Seen); RBC,URINE None Seen /HPF (0-2); WBC,URINE None Seen /HPF (0-5)
[2024-07-09 17:41] LABS: COVID AG,FIA SOURCE NASAL SWAB
[2024-07-09 17:50] LABS: GLUCOMETER DEV NAME(LOC) 3E.I 2; GLUCOSE,POINT OF CARE 329 MG/DL (70-110)
[2024-07-09 18:01] LABS: SARS-COV2 (COVID) ANTIGEN,FIA Negative (Negative)
[2024-07-09 18:22] VITALS: BP 132/51; PULSE 65; RESP 18; TEMP 97.7
[2024-07-09 20:13] LABS: INFLUENZA TYPE A NEGATIVE FOR TYPE A (NEGATIVE); INFLUENZA TYPE B NEGATIVE FOR TYPE B (NEGATIVE)
[2024-07-09 22:05] LABS: GLUCOMETER DEV NAME(LOC) 3E.I 2; GLUCOSE,POINT OF CARE 199 MG/DL (70-110)
[2024-07-09 22:11] VITALS: RESP 18
[2024-07-10] MEDS ORDERED: GLUCAGON,HUMAN RECOMBINANT 1 MG VIAL ONE (07:24)
[2024-07-10] MEDS: GLUCAGON,HUMAN RECOMBINANT 1 MG VIAL SQ ONE (07:32)
[2024-07-10 07:35] LABS: GLUCOMETER DEV NAME(LOC) 3E.I 2; GLUCOSE,POINT OF CARE 52 MG/DL (70-110)
[2024-07-10 07:35] LABS: GLUCOMETER DEV NAME(LOC) 3E.I 2; GLUCOSE,POINT OF CARE 54 MG/DL (70-110)
[2024-07-10 07:35] LABS: GLUCOMETER DEV NAME(LOC) 3E.I 2; GLUCOSE,POINT OF CARE 46 MG/DL (70-110)
[2024-07-10 08:00] VITALS: BP 156/63; PULSE 74; RESP 19; TEMP 97.8; O2SAT 96
[2024-07-10 08:30] LABS: GLUCOMETER DEV NAME(LOC) 3E.I 2; GLUCOSE,POINT OF CARE 137 MG/DL (70-110)
[2024-07-10 08:48] LABS: BASOPHILS % (AUTO) 0.5 % (0.0-2.0); HEMATOCRIT 38.3 % (36-46); HEMOGLOBIN 12.6 g/dL (12.0-16.0); LYMPHOCYTES # (AUTO) 1.2 K/uL (1.0-4.8); LYMPHOCYTES % (AUTO) 18.6 % (22.0-44.0); MEAN CORPUSCULAR HEMOGLOBIN 30.7 pg (26.0-34.0); MEAN CORPUSCULAR HGB CONC 32.8 G/dL (31.0-37.0); MEAN CORPUSCULAR VOLUME 94 fL (80-100); MONOCYTES # (AUTO) 0.6 K/uL (0.1-1.0); MONOCYTES % (AUTO) 9.8 % (2.0-9.0); NEUTROPHILS # (AUTO) 4.4 K/uL (1.8-7.7); NEUTROPHILS % (AUTO) 68.1 % (40.0-70.0); PLATELET COUNT (AUTO) 271 K/uL (150-450); RED CELL DISTRIBUTION WIDTH 15.4 % (11.5-14.5); WHITE BLOOD COUNT (AUTO) 6.5 K/uL (4.5-11.0)
[2024-07-10 08:53] LABS: CREATININE 0.95 mg/dL (0.60-1.30); POTASSIUM 4.2 mmol/L (3.5-5.1)
[2024-07-10] MEDS: ALBUTEROL SULFATE HFA 90 MCG/PUFF 8 GM INHALER IH PRN (09:08)
[2024-07-10] MEDS: FLUTICASONE/VILANTEROL 200-25 MCG/INH INHALER [14] IH SCH (10:12)
[2024-07-10 11:24] VITALS: BP 137/60; RESP 18; O2SAT 95
[2024-07-10 11:28] LABS: GLUCOMETER DEV NAME(LOC) 3E.I 2; GLUCOSE,POINT OF CARE 274 MG/DL (70-110)
[2024-07-10] MEDS: INSULIN LISPRO 100 UNITS/ML SQ PRN (11:29)
[2024-07-10 17:03] VITALS: BP 138/63; PULSE 87; RESP 19; O2SAT 96
[2024-07-10 17:15] LABS: GLUCOMETER DEV NAME(LOC) 3E.I 2; GLUCOSE,POINT OF CARE 230 MG/DL (70-110)
[2024-07-10 20:05] LABS: GLUCOMETER DEV NAME(LOC) 3E.I 2; GLUCOSE,POINT OF CARE 317 MG/DL (70-110)
[2024-07-10 20:15] VITALS: PULSE 61; RESP 18; O2SAT 99
[2024-07-10] MEDS: ALBUTEROL SULFATE 2.5 MG/0.5 ML NEB SOLUTION NEB PRN (20:15)
[2024-07-10 20:30] VITALS: PULSE 63; RESP 18; O2SAT 100
[2024-07-10 23:21] VITALS: BP 142/57; PULSE 62; RESP 18; TEMP 98.2; O2SAT 96
[2024-07-11] MEDS: FLUTICASONE PROPIONATE 50 MCG/SPRAY 16 GM NASAL SPRAY NASAL PRN (08:34)
[2024-07-11 09:52] VITALS: BP 115/57; PULSE 69; RESP 18; TEMP 98; O2SAT 97
[2024-07-11 11:25] LABS: GLUCOMETER DEV NAME(LOC) 3E.I 2; GLUCOSE,POINT OF CARE 303 MG/DL (70-110)
[2024-07-11 11:25] LABS: GLUCOMETER DEV NAME(LOC) 3E.I 2; GLUCOSE,POINT OF CARE 238 MG/DL (70-110)
[2024-07-11] MEDS ORDERED: 0.9% SODIUM CHLORIDE 5 ML NEB SOLUTION NEB ONE (13:35)
[2024-07-11 13:38] VITALS: PULSE 67; RESP 18; O2SAT 99
[2024-07-11 13:48] VITALS: PULSE 66; RESP 20; O2SAT 100
[2024-07-11 14:05] VITALS: BP 130/73; PULSE 69
[2024-07-11 15:50] VITALS: BP 154/61; PULSE 65; RESP 20; TEMP 98; O2SAT 98
[2024-07-11 16:26] LABS: GLUCOMETER DEV NAME(LOC) 3E.I 2; GLUCOSE,POINT OF CARE 154 MG/DL (70-110)
[2024-07-11 20:24] VITALS: RESP 18; TEMP 97.7
[2024-07-11 21:30] LABS: GLUCOMETER DEV NAME(LOC) 3E.I 2; GLUCOSE,POINT OF CARE 250 MG/DL (70-110)
[2024-07-12 06:25] LABS: GLUCOMETER DEV NAME(LOC) 3EX.2; GLUCOSE,POINT OF CARE 137 MG/DL (70-110)
[2024-07-12 09:42] VITALS: BP 176/74; PULSE 65; RESP 18; TEMP 97.9; O2SAT 97
[2024-07-12 11:30] VITALS: BP 124/70; PULSE 58; RESP 26; TEMP 98.2; O2SAT 98
[2024-07-12 11:51] LABS: GLUCOMETER DEV NAME(LOC) 3EX.2; GLUCOSE,POINT OF CARE 237 MG/DL (70-110)
[2024-07-12] MEDS ORDERED: 0.9% SODIUM CHLORIDE 5 ML NEB SOLUTION NEB ONE (13:29)
[2024-07-12 13:32] VITALS: PULSE 54; RESP 18; O2SAT 91
[2024-07-12 13:47] VITALS: PULSE 62; RESP 18; O2SAT 96
[2024-07-12 16:41] LABS: GLUCOMETER DEV NAME(LOC) 3EX.2; GLUCOSE,POINT OF CARE 211 MG/DL (70-110)
[2024-07-12 17:43] VITALS: BP 101/47; PULSE 56; RESP 18; TEMP 98.2; O2SAT 98
[2024-07-12 20:00] VITALS: BP 124/88; PULSE 68; RESP 19; TEMP 98.1; O2SAT 98
[2024-07-12 20:01] LABS: GLUCOMETER DEV NAME(LOC) 3EX.2; GLUCOSE,POINT OF CARE 325 MG/DL (70-110)
[2024-07-13 06:36] LABS: GLUCOMETER DEV NAME(LOC) 3EX.2; GLUCOSE,POINT OF CARE 216 MG/DL (70-110)
[2024-07-13 09:15] VITALS: PULSE 61; RESP 24; O2SAT 95
[2024-07-13 09:25] VITALS: PULSE 63; RESP 22; O2SAT 99
[2024-07-13 09:36] VITALS: BP 163/72; PULSE 68; TEMP 97.7; O2SAT 98
[2024-07-13 11:56] LABS: GLUCOMETER DEV NAME(LOC) 3EX.2; GLUCOSE,POINT OF CARE 282 MG/DL (70-110)
[2024-07-13 17:19] VITALS: BP 160/55; PULSE 60; RESP 16; TEMP 98.2; O2SAT 96
[2024-07-13 18:11] LABS: GLUCOMETER DEV NAME(LOC) 3EX.2; GLUCOSE,POINT OF CARE 152 MG/DL (70-110)
[2024-07-13 20:10] LABS: GLUCOMETER DEV NAME(LOC) 3EX.2; GLUCOSE,POINT OF CARE 324 MG/DL (70-110)
[2024-07-13 20:37] VITALS: BP 152/67; PULSE 70; RESP 18; TEMP 98.9; O2SAT 95
[2024-07-14 06:45] LABS: GLUCOMETER DEV NAME(LOC) 3EX.2; GLUCOSE,POINT OF CARE 150 MG/DL (70-110)
[2024-07-14 08:48] VITALS: BP 136/62; PULSE 60; RESP 17; TEMP 97.7; O2SAT 95
[2024-07-14 11:45] LABS: GLUCOMETER DEV NAME(LOC) 3EX.2; GLUCOSE,POINT OF CARE 277 MG/DL (70-110)
[2024-07-14 15:17] VITALS: PULSE 64; RESP 20; O2SAT 94
[2024-07-14 15:32] VITALS: PULSE 65; RESP 20; O2SAT 98
[2024-07-14 18:41] LABS: GLUCOMETER DEV NAME(LOC) 3EX.2; GLUCOSE,POINT OF CARE 230 MG/DL (70-110)
[2024-07-14 20:05] VITALS: BP 154/68; PULSE 63; RESP 18; TEMP 98.2; O2SAT 98
[2024-07-14 20:11] LABS: GLUCOMETER DEV NAME(LOC) 3EX.2; GLUCOSE,POINT OF CARE 282 MG/DL (70-110)
[2024-07-15 06:30] LABS: GLUCOMETER DEV NAME(LOC) 3EX.2; GLUCOSE,POINT OF CARE 275 MG/DL (70-110)
[2024-07-15 08:24] VITALS: BP 168/67; PULSE 61; RESP 18; TEMP 97.7; O2SAT 95
[2024-07-15 09:05] VITALS: PULSE 71; RESP 20; O2SAT 95
[2024-07-15 09:20] VITALS: PULSE 68; RESP 20; O2SAT 99
[2024-07-15 12:16] LABS: GLUCOMETER DEV NAME(LOC) 3EX.2; GLUCOSE,POINT OF CARE 339 MG/DL (70-110)
[2024-07-15 17:51] LABS: GLUCOMETER DEV NAME(LOC) 3EX.2; GLUCOSE,POINT OF CARE 109 MG/DL (70-110)
[2024-07-15 20:27] VITALS: BP 130/70; PULSE 86; RESP 17; TEMP 98; O2SAT 96
[2024-07-15 20:35] LABS: GLUCOMETER DEV NAME(LOC) 3E.I 2; GLUCOSE,POINT OF CARE 205 MG/DL (70-110)
[2024-07-15 23:51] VITALS: BP 137/67; PULSE 66; RESP 19; TEMP 98.1; O2SAT 98
[2024-07-16 05:55] LABS: GLUCOMETER DEV NAME(LOC) 3E.I 2; GLUCOSE,POINT OF CARE 273 MG/DL (70-110)
[2024-07-16 08:20] VITALS: BP 131/66; PULSE 63; RESP 17; TEMP 97.9; O2SAT 96
[2024-07-16 11:51] LABS: GLUCOMETER DEV NAME(LOC) 3E.I 2; GLUCOSE,POINT OF CARE 294 MG/DL (70-110)
[2024-07-16 15:40] VITALS: PULSE 65; RESP 20; O2SAT 96
[2024-07-16 15:55] VITALS: PULSE 66; RESP 20; O2SAT 99
[2024-07-16 17:06] LABS: GLUCOMETER DEV NAME(LOC) 3E.I 2; GLUCOSE,POINT OF CARE 281 MG/DL (70-110)
[2024-07-16] MEDS: EMPAGLIFLOZIN 10 MG TABLET PO SCH (17:12)
[2024-07-16 21:17] VITALS: RESP 20; TEMP 97.4
[2024-07-17 06:35] LABS: GLUCOMETER DEV NAME(LOC) 3E.C; GLUCOSE,POINT OF CARE 175 MG/DL (70-110)
[2024-07-17 08:00] VITALS: BP 163/65; PULSE 69; TEMP 97.3; O2SAT 99
[2024-07-17 11:45] LABS: GLUCOMETER DEV NAME(LOC) 3E.C; GLUCOSE,POINT OF CARE 220 MG/DL (70-110)
[2024-07-17 12:21] VITALS: BP 107/64; PULSE 75; RESP 18
[2024-07-17 16:48] VITALS: BP 127/71; PULSE 68; RESP 18; O2SAT 97
[2024-07-17 17:06] LABS: GLUCOMETER DEV NAME(LOC) 3E.C; GLUCOSE,POINT OF CARE 325 MG/DL (70-110)
[2024-07-17 21:31] LABS: GLUCOMETER DEV NAME(LOC) 3EX.2; GLUCOSE,POINT OF CARE 173 MG/DL (70-110)
[2024-07-18 06:31] LABS: GLUCOMETER DEV NAME(LOC) 3EX.2; GLUCOSE,POINT OF CARE 235 MG/DL (70-110)
[2024-07-18 08:59] VITALS: RESP 18
[2024-07-18 12:25] LABS: GLUCOMETER DEV NAME(LOC) 3EX.2; GLUCOSE,POINT OF CARE 121 MG/DL (70-110)
[2024-07-18 17:56] LABS: GLUCOMETER DEV NAME(LOC) 3EX.2; GLUCOSE,POINT OF CARE 273 MG/DL (70-110)
[2024-07-18 20:22] VITALS: BP 150/59; PULSE 8; TEMP 97.6; O2SAT 95
[2024-07-18 21:36] LABS: GLUCOMETER DEV NAME(LOC) 3EX.2; GLUCOSE,POINT OF CARE 278 MG/DL (70-110)
[2024-07-19 06:10] LABS: GLUCOMETER DEV NAME(LOC) 3EX.2; GLUCOSE,POINT OF CARE 241 MG/DL (70-110)
[2024-07-19 08:00] VITALS: BP 119/65; PULSE 79; RESP 17; TEMP 97.3; O2SAT 97
[2024-07-19 11:31] LABS: GLUCOMETER DEV NAME(LOC) 3EX.2; GLUCOSE,POINT OF CARE 300 MG/DL (70-110)
[2024-07-19 17:16] LABS: GLUCOMETER DEV NAME(LOC) 3EX.2; GLUCOSE,POINT OF CARE 164 MG/DL (70-110)
[2024-07-19 21:20] LABS: GLUCOMETER DEV NAME(LOC) 3EX.2; GLUCOSE,POINT OF CARE 317 MG/DL (70-110)
[2024-07-19 21:36] VITALS: RESP 17; TEMP 97.5
[2024-07-20 04:59] VITALS: PULSE 61; PULSE 67; RESP 18; RESP 20; O2SAT 97
[2024-07-20 05:14] VITALS: PULSE 77; RESP 20; O2SAT 98
[2024-07-20 06:16] LABS: GLUCOMETER DEV NAME(LOC) 3EX.2; GLUCOSE,POINT OF CARE 135 MG/DL (70-110)
[2024-07-20 09:32] VITALS: BP 162/65; PULSE 57; RESP 18; TEMP 97.4; O2SAT 96
[2024-07-20 11:36] LABS: GLUCOMETER DEV NAME(LOC) 3EX.2; GLUCOSE,POINT OF CARE 236 MG/DL (70-110)
[2024-07-20 17:05] LABS: GLUCOMETER DEV NAME(LOC) 3EX.2; GLUCOSE,POINT OF CARE 234 MG/DL (70-110)
[2024-07-20 20:51] LABS: GLUCOMETER DEV NAME(LOC) 3EX.2; GLUCOSE,POINT OF CARE 325 MG/DL (70-110)
[2024-07-20 22:12] VITALS: BP 144/52; PULSE 80; RESP 18; TEMP 97.6; O2SAT 97
[2024-07-21] MEDS ORDERED: 0.9% SODIUM CHLORIDE 5 ML NEB SOLUTION NEB ONE (00:58)
[2024-07-21 06:26] LABS: GLUCOMETER DEV NAME(LOC) 3EX.2; GLUCOSE,POINT OF CARE 162 MG/DL (70-110)
[2024-07-21 09:33] VITALS: RESP 18
[2024-07-21] MEDS: EMPAGLIFLOZIN 10 MG TABLET PO SCH (12:30)
[2024-07-21 12:46] LABS: GLUCOMETER DEV NAME(LOC) 3EX.2; GLUCOSE,POINT OF CARE 293 MG/DL (70-110)
[2024-07-21 16:12] VITALS: PULSE 60; RESP 18; O2SAT 98
[2024-07-21 16:27] VITALS: PULSE 61; RESP 18; O2SAT 99
[2024-07-21 18:10] LABS: GLUCOMETER DEV NAME(LOC) 3EX.2; GLUCOSE,POINT OF CARE 340 MG/DL (70-110)
[2024-07-21 20:45] LABS: GLUCOMETER DEV NAME(LOC) 3EX.2; GLUCOSE,POINT OF CARE 61 MG/DL (70-110)
[2024-07-21 21:52] VITALS: RESP 18; O2SAT 0
[2024-07-22 06:25] LABS: GLUCOMETER DEV NAME(LOC) 3EX.2; GLUCOSE,POINT OF CARE 365 MG/DL (70-110)
[2024-07-22 06:33] LABS: CREATININE 1.24 mg/dL (0.60-1.30); POTASSIUM 4.4 mmol/L (3.5-5.1)
[2024-07-22 06:36] LABS: BASOPHILS % (AUTO) 0.8 % (0.0-2.0); EOSINOPHILS % (AUTO) 1.3 % (1.0-6.0); HEMATOCRIT 41.6 % (36-46); HEMOGLOBIN 13.6 g/dL (12.0-16.0); LYMPHOCYTES # (AUTO) 1.2 K/uL (1.0-4.8); LYMPHOCYTES % (AUTO) 21.2 % (22.0-44.0); MEAN CORPUSCULAR HGB CONC 32.6 G/dL (31.0-37.0); MEAN CORPUSCULAR VOLUME 95 fL (80-100); MONOCYTES # (AUTO) 0.4 K/uL (0.1-1.0); MONOCYTES % (AUTO) 7.2 % (2.0-9.0); NEUTROPHILS % (AUTO) 69.5 % (40.0-70.0); PLATELET COUNT (AUTO) 293 K/uL (150-450); RED BLOOD CELL COUNT(AUTO) 4.38 MIL/uL (4.00-5.20); RED CELL DISTRIBUTION WIDTH 15.4 % (11.5-14.5); WHITE BLOOD COUNT (AUTO) 5.7 K/uL (4.5-11.0)
[2024-07-22 09:00] VITALS: BP 165/86; PULSE 76; RESP 18; TEMP 98.1; O2SAT 95
[2024-07-22 12:06] LABS: GLUCOMETER DEV NAME(LOC) 3EX.2; GLUCOSE,POINT OF CARE 292 MG/DL (70-110)
[2024-07-22 12:15] VITALS: BP 138/54; PULSE 80; RESP 18; TEMP 97.8; O2SAT 96
[2024-07-22 13:48] VITALS: PULSE 76; RESP 18; O2SAT 95
[2024-07-22] MEDS ORDERED: 0.9% SODIUM CHLORIDE 5 ML NEB SOLUTION NEB ONE (13:48)
[2024-07-22 14:03] VITALS: PULSE 79; RESP 18; O2SAT 99
[2024-07-22 17:11] LABS: GLUCOMETER DEV NAME(LOC) 3EX.2; GLUCOSE,POINT OF CARE 270 MG/DL (70-110)
[2024-07-22 21:41] LABS: GLUCOMETER DEV NAME(LOC) 3EX.2; GLUCOSE,POINT OF CARE 190 MG/DL (70-110)
[2024-07-22] MEDS: NYSTATIN 15 GM POWDER BOTTLE TP SCH (21:41)
[2024-07-22 22:40] VITALS: RESP 18
[2024-07-23 06:45] LABS: GLUCOMETER DEV NAME(LOC) 3EX.2; GLUCOSE,POINT OF CARE 191 MG/DL (70-110)
[2024-07-23 08:31] VITALS: BP 159/60; PULSE 61; RESP 18; TEMP 97.4; O2SAT 100
[2024-07-23 11:40] LABS: GLUCOMETER DEV NAME(LOC) 3EX.2; GLUCOSE,POINT OF CARE 238 MG/DL (70-110)
[2024-07-23] MEDS ORDERED: 0.9% SODIUM CHLORIDE 5 ML NEB SOLUTION NEB ONE (12:56)
[2024-07-23 12:57] VITALS: PULSE 73; RESP 18; O2SAT 98
[2024-07-23 13:12] VITALS: PULSE 75; RESP 18; O2SAT 99
[2024-07-23 16:46] LABS: GLUCOMETER DEV NAME(LOC) 3EX.2; GLUCOSE,POINT OF CARE 261 MG/DL (70-110)
[2024-07-23 17:20] VITALS: BP 167/61; PULSE 63
[2024-07-23 20:26] LABS: GLUCOMETER DEV NAME(LOC) 3EX.2; GLUCOSE,POINT OF CARE 422 MG/DL (70-110)
[2024-07-23 23:55] VITALS: BP 111/64; PULSE 61; RESP 18; TEMP 97.9; O2SAT 97
[2024-07-24 06:31] LABS: GLUCOMETER DEV NAME(LOC) 3EX.2; GLUCOSE,POINT OF CARE 217 MG/DL (70-110)
[2024-07-24 09:51] VITALS: BP 115/75; PULSE 76; RESP 18; TEMP 97.8; O2SAT 97
[2024-07-24 11:35] LABS: GLUCOMETER DEV NAME(LOC) 3EX.2; GLUCOSE,POINT OF CARE 411 MG/DL (70-110)
[2024-07-24 17:01] LABS: GLUCOMETER DEV NAME(LOC) 3EX.2; GLUCOSE,POINT OF CARE 232 MG/DL (70-110)
[2024-07-24 20:45] LABS: GLUCOMETER DEV NAME(LOC) 3EX.2; GLUCOSE,POINT OF CARE 338 MG/DL (70-110)
[2024-07-24 22:01] VITALS: BP 162/75; PULSE 96; RESP 16; TEMP 97.7; O2SAT 96
[2024-07-25 06:26] LABS: GLUCOMETER DEV NAME(LOC) 3EX.2; GLUCOSE,POINT OF CARE 278 MG/DL (70-110)
[2024-07-25] MEDS: GLIMEPIRIDE 2 MG TABLET PO SCH (06:48)
[2024-07-25 09:00] VITALS: BP 120/54; PULSE 95; RESP 18; TEMP 97.7; O2SAT 95
[2024-07-25 17:17] VITALS: BP 136/66
[2024-07-25 17:35] LABS: GLUCOMETER DEV NAME(LOC) 3EX.2; GLUCOSE,POINT OF CARE 217 MG/DL (70-110)
[2024-07-25 20:34] VITALS: RESP 18; TEMP 97.7
[2024-07-25 20:35] LABS: GLUCOMETER DEV NAME(LOC) 3EX.2; GLUCOSE,POINT OF CARE 202 MG/DL (70-110)
[2024-07-25 20:36] VITALS: RESP 18
[2024-07-26 06:30] LABS: GLUCOMETER DEV NAME(LOC) 3EX.2; GLUCOSE,POINT OF CARE 193 MG/DL (70-110)
[2024-07-26 08:00] VITALS: BP 194/68; PULSE 81; RESP 18; TEMP 97
[2024-07-26 12:36] LABS: GLUCOMETER DEV NAME(LOC) 3EX.2; GLUCOSE,POINT OF CARE 213 MG/DL (70-110)
[2024-07-26] MEDS: INSULIN LISPRO 100 UNITS/ML SQ PRN (13:33)
[2024-07-26 17:51] LABS: GLUCOMETER DEV NAME(LOC) 3EX.2; GLUCOSE,POINT OF CARE 97 MG/DL (70-110)
[2024-07-26 20:21] LABS: GLUCOMETER DEV NAME(LOC) 3EX.2; GLUCOSE,POINT OF CARE 206 MG/DL (70-110)
[2024-07-26 22:12] VITALS: RESP 18
[2024-07-27 05:51] LABS: GLUCOMETER DEV NAME(LOC) 3EX.2; GLUCOSE,POINT OF CARE 162 MG/DL (70-110)
[2024-07-27 10:09] VITALS: BP 114/50; PULSE 75; RESP 19; TEMP 96.9; O2SAT 99
[2024-07-27 13:01] LABS: GLUCOMETER DEV NAME(LOC) 3EX.2; GLUCOSE,POINT OF CARE 328 MG/DL (70-110)
[2024-07-27 17:50] LABS: GLUCOMETER DEV NAME(LOC) 3EX.2; GLUCOSE,POINT OF CARE 158 MG/DL (70-110)
[2024-07-27 20:25] VITALS: RESP 18
[2024-07-27 22:06] LABS: GLUCOMETER DEV NAME(LOC) 3EX.2; GLUCOSE,POINT OF CARE 198 MG/DL (70-110)
[2024-07-27 22:06] LABS: GLUCOMETER DEV NAME(LOC) 3EX.2; GLUCOSE,POINT OF CARE 123 MG/DL (70-110)
[2024-07-28 06:41] LABS: GLUCOMETER DEV NAME(LOC) 3EX.2; GLUCOSE,POINT OF CARE 172 MG/DL (70-110)
[2024-07-28 10:04] VITALS: BP 161/74; PULSE 60; RESP 20; TEMP 98; O2SAT 97
[2024-07-28 11:25] LABS: GLUCOMETER DEV NAME(LOC) 3EX.2; GLUCOSE,POINT OF CARE 227 MG/DL (70-110)
[2024-07-28 17:45] LABS: GLUCOMETER DEV NAME(LOC) 3EX.2; GLUCOSE,POINT OF CARE 213 MG/DL (70-110)
[2024-07-28 21:41] VITALS: RESP 18
[2024-07-28 23:41] LABS: APPEARANCE,URINE CLEAR (CLEAR); BILIRUBIN,URINE NEGATIVE (NEGATIVE); COLOR,URINE LIGHT YELLOW (YELLOW); GLUCOSE, URINE (UA) >=1000 mg/dL (NEGATIVE); KETONES,URINE NEGATIVE (NEGATIVE); LEUKOCYTE ESTERASE ,URINE NEGATIVE (NEGATIVE); NITRATE,URINE NEGATIVE (NEGATIVE); OCCULT BLOOD,URINE NEGATIVE (NEGATIVE); PROTEIN,URINE NEGATIVE (NEGATIVE); SPECIFIC GRAVITIY, URINE 1.021 (1.003-1.030); UROBILINOGEN,URINE <=1.0 mg/dL (<=1.0)
[2024-07-28 23:59] LABS: BACTERIA,URINE None Seen /HPF (None Seen); RBC,URINE None Seen /HPF (0-2); SQUAMOUS EPITHELIAL CELL,UR Few /LPF (None Seen); WBC,URINE None Seen /HPF (0-5)
[2024-07-29 06:51] LABS: GLUCOMETER DEV NAME(LOC) 3EX.2; GLUCOSE,POINT OF CARE 316 MG/DL (70-110)
[2024-07-29 11:20] LABS: GLUCOMETER DEV NAME(LOC) 3EX.2; GLUCOSE,POINT OF CARE 266 MG/DL (70-110)
[2024-07-29 12:00] VITALS: BP 141/63; PULSE 65; RESP 18; TEMP 97.7; O2SAT 95
[2024-07-29 17:45] LABS: GLUCOMETER DEV NAME(LOC) 3EX.2; GLUCOSE,POINT OF CARE 253 MG/DL (70-110)
[2024-07-29 22:04] VITALS: BP 121/57; PULSE 71; RESP 18; TEMP 97; O2SAT 96
[2024-07-29 22:15] LABS: GLUCOMETER DEV NAME(LOC) 3EX.2; GLUCOSE,POINT OF CARE 117 MG/DL (70-110)
[2024-07-29 23:05] VITALS: BP 116/60; PULSE 68; RESP 18; TEMP 97; O2SAT 97
[2024-07-30 06:31] LABS: GLUCOMETER DEV NAME(LOC) 3EX.2; GLUCOSE,POINT OF CARE 134 MG/DL (70-110)
[2024-07-30 09:13] VITALS: TEMP 98.1
[2024-07-30 12:21] LABS: GLUCOMETER DEV NAME(LOC) 3EX.2; GLUCOSE,POINT OF CARE 323 MG/DL (70-110)
[2024-07-30 17:21] LABS: GLUCOMETER DEV NAME(LOC) 3EX.2; GLUCOSE,POINT OF CARE 181 MG/DL (70-110)
[2024-07-30 21:35] LABS: GLUCOMETER DEV NAME(LOC) 3EX.2; GLUCOSE,POINT OF CARE 365 MG/DL (70-110)
[2024-07-30 22:31] VITALS: BP 144/65; PULSE 66; RESP 18; TEMP 97.9; O2SAT 98
[2024-07-31 08:48] VITALS: BP 127/57; PULSE 64; RESP 18; TEMP 97.8; O2SAT 97
[2024-07-31 12:06] LABS: GLUCOMETER DEV NAME(LOC) 3EX.2; GLUCOSE,POINT OF CARE 322 MG/DL (70-110)
[2024-07-31] MEDS: DOCUSATE SODIUM 100 MG CAPSULE PO PRN (15:18)
[2024-07-31] MEDS: GLIMEPIRIDE 2 MG TABLET PO SCH (17:57)
[2024-07-31 18:16] LABS: GLUCOMETER DEV NAME(LOC) 3EX.2; GLUCOSE,POINT OF CARE 200 MG/DL (70-110)
[2024-07-31 20:20] VITALS: BP 122/78; PULSE 71; RESP 19; TEMP 97.6; O2SAT 98
[2024-07-31 20:35] LABS: GLUCOMETER DEV NAME(LOC) 3EX.2; GLUCOSE,POINT OF CARE 289 MG/DL (70-110)
[2024-08-01 08:45] VITALS: BP 145/80; PULSE 77; RESP 18; TEMP 98.1; O2SAT 97
[2024-08-01 11:00] VITALS: BP 137/78; PULSE 79; RESP 18; O2SAT 98
[2024-08-01 12:01] LABS: GLUCOMETER DEV NAME(LOC) 3EX.2; GLUCOSE,POINT OF CARE 316 MG/DL (70-110)
[2024-08-01 17:10] VITALS: BP 131/62; PULSE 98; RESP 18; TEMP 98.2; O2SAT 98
[2024-08-01 17:36] LABS: GLUCOMETER DEV NAME(LOC) 3EX.2; GLUCOSE,POINT OF CARE 241 MG/DL (70-110)
[2024-08-01 20:21] LABS: GLUCOMETER DEV NAME(LOC) 3EX.2; GLUCOSE,POINT OF CARE 325 MG/DL (70-110)
[2024-08-01 21:29] VITALS: BP 120/57; PULSE 65; RESP 18; TEMP 98.3; O2SAT 100
[2024-08-02 06:10] LABS: GLUCOMETER DEV NAME(LOC) 3EX.2; GLUCOSE,POINT OF CARE 103 MG/DL (70-110)
[2024-08-02 11:07] VITALS: BP 134/89; PULSE 103; RESP 18; TEMP 97; O2SAT 96
[2024-08-02 11:51] LABS: GLUCOMETER DEV NAME(LOC) 3EX.2; GLUCOSE,POINT OF CARE 443 MG/DL (70-110)
[2024-08-02] MEDS: INSULIN LISPRO 100 UNITS/ML SQ ONE (12:10)
[2024-08-02 17:56] LABS: GLUCOMETER DEV NAME(LOC) 3EX.2; GLUCOSE,POINT OF CARE 217 MG/DL (70-110)
[2024-08-02 20:42] VITALS: BP 131/77; PULSE 98; RESP 18; TEMP 97.3; O2SAT 98
[2024-08-02 21:16] LABS: GLUCOMETER DEV NAME(LOC) 3EX.2; GLUCOSE,POINT OF CARE 290 MG/DL (70-110)
[2024-08-03 06:31] LABS: GLUCOMETER DEV NAME(LOC) 3EX.2; GLUCOSE,POINT OF CARE 179 MG/DL (70-110)
[2024-08-03] MEDS: GLIMEPIRIDE 2 MG TABLET PO SCH (07:04)
[2024-08-03 08:43] VITALS: BP 159/76; PULSE 65; RESP 18; TEMP 97.9; O2SAT 96
[2024-08-03 12:05] LABS: GLUCOMETER DEV NAME(LOC) 3EX.2; GLUCOSE,POINT OF CARE 394 MG/DL (70-110)
[2024-08-03 16:20] LABS: GLUCOMETER DEV NAME(LOC) 3EX.2; GLUCOSE,POINT OF CARE 138 MG/DL (70-110)
[2024-08-03 20:07] VITALS: BP 132/83; PULSE 75; RESP 18; TEMP 97.9
[2024-08-03 21:31] LABS: GLUCOMETER DEV NAME(LOC) 3EX.2; GLUCOSE,POINT OF CARE 347 MG/DL (70-110)
[2024-08-04 06:30] LABS: GLUCOMETER DEV NAME(LOC) 3EX.2; GLUCOSE,POINT OF CARE 161 MG/DL (70-110)
[2024-08-04 09:03] VITALS: RESP 18
[2024-08-04 10:05] VITALS: BP 153/72; PULSE 65; RESP 18; TEMP 98.1; O2SAT 97
[2024-08-04 11:56] LABS: GLUCOMETER DEV NAME(LOC) 3EX.2; GLUCOSE,POINT OF CARE 195 MG/DL (70-110)
[2024-08-04 17:31] LABS: GLUCOMETER DEV NAME(LOC) 3EX.2; GLUCOSE,POINT OF CARE 281 MG/DL (70-110)
[2024-08-04 20:26] VITALS: BP 141/67; RESP 19; TEMP 98; O2SAT 98
[2024-08-04 21:40] LABS: GLUCOMETER DEV NAME(LOC) 3EX.2; GLUCOSE,POINT OF CARE 313 MG/DL (70-110)
[2024-08-05 06:21] LABS: GLUCOMETER DEV NAME(LOC) 3EX.2; GLUCOSE,POINT OF CARE 179 MG/DL (70-110)
[2024-08-05 10:35] VITALS: BP 162/64; PULSE 65; RESP 18; TEMP 97.7; O2SAT 98
[2024-08-05 11:50] LABS: GLUCOMETER DEV NAME(LOC) 3EX.2; GLUCOSE,POINT OF CARE 341 MG/DL (70-110)
[2024-08-05 16:30] VITALS: BP 101/49
[2024-08-05 18:11] LABS: GLUCOMETER DEV NAME(LOC) 3EX.2; GLUCOSE,POINT OF CARE 266 MG/DL (70-110)
[2024-08-05 20:10] VITALS: TEMP 97.6
[2024-08-05 21:51] LABS: GLUCOMETER DEV NAME(LOC) 3EX.2; GLUCOSE,POINT OF CARE 217 MG/DL (70-110)
[2024-08-06 06:36] LABS: GLUCOMETER DEV NAME(LOC) 3EX.2; GLUCOSE,POINT OF CARE 177 MG/DL (70-110)
[2024-08-06 08:52] VITALS: BP 150/69; PULSE 73; RESP 17; TEMP 97.4; O2SAT 97
[2024-08-06 11:56] LABS: GLUCOMETER DEV NAME(LOC) 3EX.2; GLUCOSE,POINT OF CARE 185 MG/DL (70-110)
[2024-08-06 18:26] LABS: GLUCOMETER DEV NAME(LOC) 3EX.2; GLUCOSE,POINT OF CARE 204 MG/DL (70-110)
[2024-08-06 21:03] VITALS: RESP 17; TEMP 98.1
[2024-08-06 21:46] LABS: GLUCOMETER DEV NAME(LOC) 3EX.2; GLUCOSE,POINT OF CARE 284 MG/DL (70-110)
[2024-08-07 06:36] LABS: GLUCOMETER DEV NAME(LOC) 3EX.2; GLUCOSE,POINT OF CARE 119 MG/DL (70-110)
[2024-08-07 08:08] VITALS: BP 142/73; PULSE 63; RESP 18; O2SAT 96
[2024-08-07 11:51] LABS: GLUCOMETER DEV NAME(LOC) 3EX.2; GLUCOSE,POINT OF CARE 280 MG/DL (70-110)
[2024-08-07 17:26] LABS: GLUCOMETER DEV NAME(LOC) 3EX.2; GLUCOSE,POINT OF CARE 254 MG/DL (70-110)
[2024-08-07 20:25] VITALS: PULSE 66; RESP 16; TEMP 98.6; O2SAT 96
[2024-08-07 21:21] LABS: GLUCOMETER DEV NAME(LOC) 3EX.2; GLUCOSE,POINT OF CARE 380 MG/DL (70-110)
[2024-08-08 06:42] LABS: GLUCOMETER DEV NAME(LOC) 3EX.2; GLUCOSE,POINT OF CARE 150 MG/DL (70-110)
[2024-08-08 07:58] LABS: COVID AG,FIA SOURCE NASAL SWAB
[2024-08-08 08:19] LABS: SARS-COV2 (COVID) ANTIGEN,FIA Negative (Negative)
[2024-08-08 08:44] VITALS: BP 146/62; PULSE 66; RESP 18; TEMP 97.8; O2SAT 99
[2024-08-08 11:56] LABS: GLUCOMETER DEV NAME(LOC) 3EX.2; GLUCOSE,POINT OF CARE 202 MG/DL (70-110)
[2024-08-08 17:51] LABS: GLUCOMETER DEV NAME(LOC) 3EX.2; GLUCOSE,POINT OF CARE 317 MG/DL (70-110)
[2024-08-08 21:13] VITALS: BP 106/66; PULSE 64; RESP 18; TEMP 97.8; O2SAT 96
[2024-08-08 21:26] LABS: GLUCOMETER DEV NAME(LOC) 3EX.2; GLUCOSE,POINT OF CARE 238 MG/DL (70-110)
[2024-08-09 05:46] LABS: GLUCOMETER DEV NAME(LOC) 3EX.2; GLUCOSE,POINT OF CARE 171 MG/DL (70-110)
[2024-08-09 09:36] VITALS: BP 155/63; PULSE 63; RESP 18; TEMP 97.7; O2SAT 97
[2024-08-09 11:46] LABS: GLUCOMETER DEV NAME(LOC) 3EX.2; GLUCOSE,POINT OF CARE 288 MG/DL (70-110)
[2024-08-09 17:20] LABS: GLUCOMETER DEV NAME(LOC) 3EX.2; GLUCOSE,POINT OF CARE 194 MG/DL (70-110)
[2024-08-09] MEDS: BISACODYL 10 MG RECTAL RECTAL SUPPOSITORY PR PRN (17:21)
[2024-08-09 18:12] VITALS: BP 145/72; PULSE 75; RESP 19; O2SAT 98
[2024-08-09 20:26] LABS: GLUCOMETER DEV NAME(LOC) 3EX.2; GLUCOSE,POINT OF CARE 322 MG/DL (70-110)
[2024-08-09 20:35] VITALS: BP 141/69; PULSE 73; RESP 18; TEMP 97.6; O2SAT 98
[2024-08-10 05:51] LABS: GLUCOMETER DEV NAME(LOC) 3EX.2; GLUCOSE,POINT OF CARE 121 MG/DL (70-110)
[2024-08-10 08:58] VITALS: BP 107/60; PULSE 73; RESP 17; TEMP 97; O2SAT 96
[2024-08-10 09:15] VITALS: BP 107/60; PULSE 73; RESP 17; TEMP 97; O2SAT 96
[2024-08-10 09:36] VITALS: BP 133/50; PULSE 62; RESP 18; TEMP 97.2; O2SAT 98
[2024-08-10 11:55] LABS: GLUCOMETER DEV NAME(LOC) 3EX.2; GLUCOSE,POINT OF CARE 202 MG/DL (70-110)
[2024-08-10 17:30] VITALS: BP 131/54; PULSE 71; RESP 17; TEMP 97.2; O2SAT 98
[2024-08-10 17:51] LABS: GLUCOMETER DEV NAME(LOC) 3EX.2; GLUCOSE,POINT OF CARE 244 MG/DL (70-110)
[2024-08-10 20:12] VITALS: RESP 16
[2024-08-10 21:16] LABS: GLUCOMETER DEV NAME(LOC) 3EX.2; GLUCOSE,POINT OF CARE 249 MG/DL (70-110)
[2024-08-11 06:46] LABS: GLUCOMETER DEV NAME(LOC) 3EX.2; GLUCOSE,POINT OF CARE 127 MG/DL (70-110)
[2024-08-11 08:54] VITALS: BP 155/78; PULSE 65; RESP 19; TEMP 97.6; O2SAT 96
[2024-08-11 12:11] LABS: GLUCOMETER DEV NAME(LOC) 3EX.2; GLUCOSE,POINT OF CARE 221 MG/DL (70-110)
[2024-08-11 16:49] VITALS: BP 156/95; PULSE 73; RESP 17; TEMP 97.5; O2SAT 98
[2024-08-11 18:05] LABS: GLUCOMETER DEV NAME(LOC) 3EX.2; GLUCOSE,POINT OF CARE 303 MG/DL (70-110)
[2024-08-11 20:18] VITALS: RESP 18
[2024-08-12 07:01] LABS: GLUCOMETER DEV NAME(LOC) 3EX.2; GLUCOSE,POINT OF CARE 128 MG/DL (70-110)
[2024-08-12 08:21] VITALS: BP 124/85; PULSE 74; RESP 18; TEMP 97.8; O2SAT 97
[2024-08-12] MEDS: INSULIN LISPRO 100 UNITS/ML SQ ONE (12:13)
[2024-08-12 12:15] LABS: GLUCOMETER DEV NAME(LOC) 3EX.2; GLUCOSE,POINT OF CARE 449 MG/DL (70-110)
[2024-08-12 17:11] LABS: GLUCOMETER DEV NAME(LOC) 3EX.2; GLUCOSE,POINT OF CARE 112 MG/DL (70-110)
[2024-08-12 17:28] LABS: APPEARANCE,URINE HAZY (CLEAR); BILIRUBIN,URINE NEGATIVE (NEGATIVE); COLOR,URINE LIGHT YELLOW (YELLOW); GLUCOSE, URINE (UA) >=1000 mg/dL (NEGATIVE); KETONES,URINE NEGATIVE (NEGATIVE); LEUKOCYTE ESTERASE ,URINE MODERATE (NEGATIVE); NITRATE,URINE NEGATIVE (NEGATIVE); OCCULT BLOOD,URINE SMALL (NEGATIVE); PROTEIN,URINE NEGATIVE (NEGATIVE); SPECIFIC GRAVITIY, URINE 1.026 (1.003-1.030); UROBILINOGEN,URINE <=1.0 mg/dL (<=1.0)
[2024-08-12 17:46] LABS: RBC,URINE 0-2 /HPF (0-2); WBC,URINE 51-100 /HPF (0-5)
[2024-08-12 17:47] LABS: BACTERIA,URINE Moderate /HPF (None Seen); SQUAMOUS EPITHELIAL CELL,UR Few /LPF (None Seen)
[2024-08-12 20:19] VITALS: BP 133/55; PULSE 65; RESP 18; TEMP 97.6; O2SAT 97
[2024-08-12 21:35] LABS: GLUCOMETER DEV NAME(LOC) 3EX.2; GLUCOSE,POINT OF CARE 196 MG/DL (70-110)
[2024-08-13 06:46] LABS: GLUCOMETER DEV NAME(LOC) 3EX.2; GLUCOSE,POINT OF CARE 156 MG/DL (70-110)
[2024-08-13] MEDS: CEPHALEXIN MONOHYDRATE 500 MG CAPSULE PO SCH (08:37)
[2024-08-13 08:48] VITALS: BP 160/76; PULSE 64; RESP 18; TEMP 97; O2SAT 96
[2024-08-13 12:25] LABS: GLUCOMETER DEV NAME(LOC) 3EX.2; GLUCOSE,POINT OF CARE 254 MG/DL (70-110)
[2024-08-13 14:04] VITALS: BP 122/83; PULSE 72; RESP 18; TEMP 97; O2SAT 98
[2024-08-13 15:04] VITALS: BP 124/82; PULSE 66; RESP 18; TEMP 97.2; O2SAT 97
[2024-08-13] MEDS: INSULIN LISPRO 100 UNITS/ML SQ ONE (17:35)
[2024-08-13 17:46] LABS: GLUCOMETER DEV NAME(LOC) 3EX.2; GLUCOSE,POINT OF CARE 402 MG/DL (70-110)
[2024-08-13 20:30] VITALS: PULSE 71; RESP 18; TEMP 98; O2SAT 98
[2024-08-13 22:21] LABS: GLUCOMETER DEV NAME(LOC) 3EX.2; GLUCOSE,POINT OF CARE 129 MG/DL (70-110)
[2024-08-14 08:18] VITALS: BP 149/62; PULSE 65; RESP 20; TEMP 98.2; O2SAT 100
[2024-08-14 12:11] LABS: GLUCOMETER DEV NAME(LOC) 3E.C; GLUCOSE,POINT OF CARE 204 MG/DL (70-110)
[2024-08-14 17:11] LABS: GLUCOMETER DEV NAME(LOC) 3E.C; GLUCOSE,POINT OF CARE 352 MG/DL (70-110)
[2024-08-14 20:36] VITALS: BP 120/56; PULSE 67; RESP 18; TEMP 98.6; O2SAT 97
[2024-08-14 22:16] LABS: GLUCOMETER DEV NAME(LOC) 3EX.2; GLUCOSE,POINT OF CARE 313 MG/DL (70-110)
[2024-08-15 06:52] LABS: GLUCOMETER DEV NAME(LOC) 3EX.2; GLUCOSE,POINT OF CARE 139 MG/DL (70-110)
[2024-08-15 09:50] VITALS: BP 131/51; PULSE 60; RESP 18; TEMP 97.5; O2SAT 96
[2024-08-15 12:56] LABS: GLUCOMETER DEV NAME(LOC) 3EX.2; GLUCOSE,POINT OF CARE 316 MG/DL (70-110)
[2024-08-15 18:00] LABS: GLUCOMETER DEV NAME(LOC) 3EX.2; GLUCOSE,POINT OF CARE 143 MG/DL (70-110)
[2024-08-15 22:55] VITALS: BP 130/57; PULSE 59; RESP 18; TEMP 97.9; O2SAT 96
[2024-08-16 12:00] LABS: GLUCOMETER DEV NAME(LOC) 3EX.2; GLUCOSE,POINT OF CARE 287 MG/DL (70-110)
[2024-08-16 16:36] LABS: GLUCOMETER DEV NAME(LOC) 3EX.2; GLUCOSE,POINT OF CARE 152 MG/DL (70-110)
[2024-08-16 16:56] VITALS: BP 169/66; PULSE 60; RESP 18; TEMP 97; O2SAT 97
[2024-08-16 20:41] LABS: GLUCOMETER DEV NAME(LOC) 3EX.2; GLUCOSE,POINT OF CARE 341 MG/DL (70-110)
[2024-08-16 22:23] VITALS: BP 147/60; PULSE 66; RESP 18; TEMP 98.7; O2SAT 96
[2024-08-17 06:45] LABS: GLUCOMETER DEV NAME(LOC) 3EX.2; GLUCOSE,POINT OF CARE 192 MG/DL (70-110)
[2024-08-17 11:40] VITALS: BP 153/73; PULSE 73; RESP 18; TEMP 97.8
[2024-08-17 12:06] LABS: GLUCOMETER DEV NAME(LOC) 3EX.2; GLUCOSE,POINT OF CARE 298 MG/DL (70-110)
[2024-08-17] MEDS ORDERED: 0.9% SODIUM CHLORIDE 5 ML NEB SOLUTION NEB ONE (13:08)
[2024-08-17 13:13] VITALS: PULSE 63; RESP 18; O2SAT 94
[2024-08-17 13:25] VITALS: PULSE 65; RESP 18; O2SAT 98
[2024-08-17 16:50] LABS: GLUCOMETER DEV NAME(LOC) 3EX.2; GLUCOSE,POINT OF CARE 202 MG/DL (70-110)
[2024-08-17 17:38] VITALS: BP 148/56; PULSE 68; RESP 17; TEMP 97.6; O2SAT 97
[2024-08-17 20:26] LABS: GLUCOMETER DEV NAME(LOC) 3EX.2; GLUCOSE,POINT OF CARE 201 MG/DL (70-110)
[2024-08-17 21:04] VITALS: BP 132/84; PULSE 86; RESP 18; TEMP 97.6; O2SAT 97
[2024-08-18 08:26] LABS: GLUCOMETER DEV NAME(LOC) 3EX.2; GLUCOSE,POINT OF CARE 157 MG/DL (70-110)
[2024-08-18 09:00] VITALS: BP 117/56; PULSE 67; RESP 18; TEMP 97.7; O2SAT 94
[2024-08-18] MEDS ORDERED: 0.9% SODIUM CHLORIDE 5 ML NEB SOLUTION NEB ONE (09:18)
[2024-08-18 09:20] VITALS: PULSE 62; RESP 26; O2SAT 95
[2024-08-18 09:33] VITALS: PULSE 65; RESP 24; O2SAT 99
[2024-08-18 11:25] LABS: GLUCOMETER DEV NAME(LOC) 3EX.2; GLUCOSE,POINT OF CARE 291 MG/DL (70-110)
[2024-08-18 16:21] LABS: GLUCOMETER DEV NAME(LOC) 3EX.2; GLUCOSE,POINT OF CARE 316 MG/DL (70-110)
[2024-08-18 17:39] VITALS: BP 147/60; PULSE 67
[2024-08-18 20:11] LABS: GLUCOMETER DEV NAME(LOC) 3EX.2; GLUCOSE,POINT OF CARE 132 MG/DL (70-110)
[2024-08-18 21:12] VITALS: BP 153/58; PULSE 62; RESP 18; TEMP 97.3; O2SAT 95
[2024-08-19 06:51] LABS: GLUCOMETER DEV NAME(LOC) 3E.C; GLUCOSE,POINT OF CARE 168 MG/DL (70-110)
[2024-08-19 08:38] VITALS: BP 136/53; PULSE 60; RESP 18; TEMP 97.7; O2SAT 100
[2024-08-19] MEDS ORDERED: 0.9% SODIUM CHLORIDE 5 ML NEB SOLUTION NEB ONE (09:45)
[2024-08-19 09:50] VITALS: PULSE 63; RESP 16; O2SAT 90
[2024-08-19 10:08] VITALS: PULSE 64; RESP 18; O2SAT 98
[2024-08-19 11:31] LABS: GLUCOMETER DEV NAME(LOC) 3EX.2; GLUCOSE,POINT OF CARE 277 MG/DL (70-110)
[2024-08-19 16:45] LABS: GLUCOMETER DEV NAME(LOC) 3EX.2; GLUCOSE,POINT OF CARE 173 MG/DL (70-110)
[2024-08-19 20:11] VITALS: BP_DIAS 53; PULSE 65; RESP 18; TEMP 97.7; O2SAT 95
[2024-08-19 20:16] LABS: GLUCOMETER DEV NAME(LOC) 3E.C; GLUCOSE,POINT OF CARE 308 MG/DL (70-110)
[2024-08-20 07:06] LABS: GLUCOMETER DEV NAME(LOC) 3EX.2; GLUCOSE,POINT OF CARE 178 MG/DL (70-110)
[2024-08-20 08:43] VITALS: BP 131/53; PULSE 60; RESP 18; TEMP 97.4; O2SAT 95
[2024-08-20 12:01] LABS: GLUCOMETER DEV NAME(LOC) 3E.C; GLUCOSE,POINT OF CARE 291 MG/DL (70-110)
[2024-08-20 16:41] LABS: GLUCOMETER DEV NAME(LOC) 3E.C; GLUCOSE,POINT OF CARE 218 MG/DL (70-110)
[2024-08-20 20:26] VITALS: BP 132/61; PULSE 64; RESP 18; TEMP 97.9; O2SAT 98
[2024-08-20] MEDS ORDERED: 0.9% SODIUM CHLORIDE 5 ML NEB SOLUTION NEB ONE (21:03)
[2024-08-20 21:05] VITALS: PULSE 66; RESP 24; O2SAT 94
[2024-08-20 21:20] VITALS: PULSE 67; RESP 22; O2SAT 97
[2024-08-21 06:00] LABS: GLUCOMETER DEV NAME(LOC) 3EX.2; GLUCOSE,POINT OF CARE 129 MG/DL (70-110)
[2024-08-21 08:36] VITALS: BP 113/57; PULSE 67; RESP 18; TEMP 97.8; O2SAT 95
[2024-08-21 12:06] LABS: GLUCOMETER DEV NAME(LOC) 3E.C; GLUCOSE,POINT OF CARE 306 MG/DL (70-110)
[2024-08-21 12:14] VITALS: BP 121/51; PULSE 54; RESP 18; TEMP 97.5
[2024-08-21] MEDS ORDERED: 0.9% SODIUM CHLORIDE 5 ML NEB SOLUTION NEB ONE (15:11)
[2024-08-21 15:20] VITALS: PULSE 61; RESP 16; O2SAT 97
[2024-08-21 15:29] VITALS: PULSE 64; RESP 16; O2SAT 99
[2024-08-21 18:01] VITALS: BP 126/62; PULSE 66; RESP 17; O2SAT 97
[2024-08-21 18:15] LABS: GLUCOMETER DEV NAME(LOC) 3E.C; GLUCOSE,POINT OF CARE 227 MG/DL (70-110)
[2024-08-21 20:31] LABS: GLUCOMETER DEV NAME(LOC) 3EX.2; GLUCOSE,POINT OF CARE 385 MG/DL (70-110)
[2024-08-21 20:53] VITALS: BP 127/44; PULSE 54; RESP 18; TEMP 97.2; O2SAT 95
[2024-08-22 05:46] LABS: GLUCOMETER DEV NAME(LOC) 3EX.2; GLUCOSE,POINT OF CARE 148 MG/DL (70-110)
[2024-08-22] MEDS ORDERED: 0.9% SODIUM CHLORIDE 5 ML NEB SOLUTION NEB ONE (09:12)
[2024-08-22 09:15] VITALS: PULSE 63; RESP 18; O2SAT 91
[2024-08-22 09:28] VITALS: PULSE 55; RESP 16; O2SAT 97
[2024-08-22 09:53] VITALS: BP 141/53; PULSE 65; RESP 18; TEMP 97.1; O2SAT 98
[2024-08-22 17:31] VITALS: BP 115/46; PULSE 63
[2024-08-22 17:45] LABS: GLUCOMETER DEV NAME(LOC) 3E.C; GLUCOSE,POINT OF CARE 277 MG/DL (70-110)
[2024-08-22 21:23] VITALS: BP 119/55; PULSE 64; RESP 18; TEMP 97.9; O2SAT 100
[2024-08-22 22:20] LABS: GLUCOMETER DEV NAME(LOC) 3EX.2; GLUCOSE,POINT OF CARE 200 MG/DL (70-110)
[2024-08-23 07:00] LABS: GLUCOMETER DEV NAME(LOC) 3EX.2; GLUCOSE,POINT OF CARE 202 MG/DL (70-110)
[2024-08-23 08:00] VITALS: BP 118/61; PULSE 64; RESP 20; TEMP 97
[2024-08-23 12:10] LABS: GLUCOMETER DEV NAME(LOC) 3E.C; GLUCOSE,POINT OF CARE 273 MG/DL (70-110)
[2024-08-23 12:45] VITALS: BP 123/68; PULSE 65
[2024-08-23 16:36] LABS: GLUCOMETER DEV NAME(LOC) 3E.C; GLUCOSE,POINT OF CARE 132 MG/DL (70-110)
[2024-08-23 17:30] VITALS: BP 125/68; PULSE 69
[2024-08-23 20:41] LABS: GLUCOMETER DEV NAME(LOC) 3EX.2; GLUCOSE,POINT OF CARE 214 MG/DL (70-110)
[2024-08-23 20:55] VITALS: BP 118/70; PULSE 66; RESP 17; TEMP 97.8; O2SAT 98
[2024-08-24 06:21] LABS: GLUCOMETER DEV NAME(LOC) 3EX.2; GLUCOSE,POINT OF CARE 209 MG/DL (70-110)
[2024-08-24 08:00] VITALS: BP 144/68; PULSE 63; RESP 16; TEMP 97.4; O2SAT 98
[2024-08-24 11:36] LABS: GLUCOMETER DEV NAME(LOC) 3E.C; GLUCOSE,POINT OF CARE 239 MG/DL (70-110)
[2024-08-24 16:40] LABS: GLUCOMETER DEV NAME(LOC) 3E.C; GLUCOSE,POINT OF CARE 358 MG/DL (70-110)
[2024-08-24 20:56] VITALS: BP 124/77; PULSE 66; RESP 18; TEMP 97.9; O2SAT 98
[2024-08-25 06:21] LABS: GLUCOMETER DEV NAME(LOC) 3EX.2; GLUCOSE,POINT OF CARE 152 MG/DL (70-110)
[2024-08-25 08:55] VITALS: BP 124/54; PULSE 69; RESP 17; O2SAT 95
[2024-08-25 11:40] LABS: GLUCOMETER DEV NAME(LOC) 3E.C; GLUCOSE,POINT OF CARE 274 MG/DL (70-110)
[2024-08-25 12:58] VITALS: BP 128/51; PULSE 66; RESP 17; O2SAT 96
[2024-08-25 16:30] VITALS: BP 125/52; PULSE 78; RESP 18; O2SAT 95
[2024-08-25] MEDS: INSULIN LISPRO 100 UNITS/ML SQ ONE ×2 (18:26→21:19)
[2024-08-25 19:01] LABS: GLUCOMETER DEV NAME(LOC) 3E.C; GLUCOSE,POINT OF CARE 412 MG/DL (70-110)
[2024-08-25 20:11] VITALS: BP 123/71; PULSE 64; RESP 18; TEMP 97.4; O2SAT 98
[2024-08-25 20:45] LABS: GLUCOMETER DEV NAME(LOC) 3E.C; GLUCOSE,POINT OF CARE 419 MG/DL (70-110)
[2024-08-25] MEDS: INSULIN GLARGINE,HUM.REC.ANLOG 100 UNITS/ML SQ SCH (21:19)
[2024-08-26 05:50] LABS: GLUCOMETER DEV NAME(LOC) 3EX.2; GLUCOSE,POINT OF CARE 110 MG/DL (70-110)
[2024-08-26 08:46] LABS: CALCIUM, TOTAL 8.8 mg/dL (8.8-10.5); CREATININE 0.91 mg/dL (0.60-1.30); POTASSIUM 4.2 mmol/L (3.5-5.1)
[2024-08-26 09:25] VITALS: BP 138/54; PULSE 66; RESP 18; TEMP 97.8; O2SAT 95
[2024-08-26 11:25] VITALS: BP 157/85; PULSE 68; RESP 17; TEMP 98; O2SAT 96
[2024-08-26 11:56] LABS: GLUCOMETER DEV NAME(LOC) 3E.C; GLUCOSE,POINT OF CARE 229 MG/DL (70-110)
[2024-08-26 17:41] LABS: GLUCOMETER DEV NAME(LOC) 3E.C; GLUCOSE,POINT OF CARE 253 MG/DL (70-110)
[2024-08-26 18:30] VITALS: BP 146/57; PULSE 72; RESP 18; TEMP 97.8; O2SAT 97
[2024-08-26 20:15] LABS: GLUCOMETER DEV NAME(LOC) 3EX.2; GLUCOSE,POINT OF CARE 157 MG/DL (70-110)
[2024-08-26 20:55] VITALS: BP 135/58; PULSE 63; RESP 20; TEMP 97.5; O2SAT 96
[2024-08-26 21:50] VITALS: BP 129/60; PULSE 70; RESP 18; TEMP 98; O2SAT 97
[2024-08-26 22:58] VITALS: RESP 18
[2024-08-27 03:37] VITALS: PULSE 55; RESP 20; O2SAT 95
[2024-08-27] MEDS ORDERED: 0.9% SODIUM CHLORIDE 5 ML NEB SOLUTION NEB ONE (03:37)
[2024-08-27 03:52] VITALS: PULSE 62; RESP 20; O2SAT 98
[2024-08-27 06:10] LABS: GLUCOMETER DEV NAME(LOC) 3E.C; GLUCOSE,POINT OF CARE 117 MG/DL (70-110)
[2024-08-27 08:25] VITALS: BP 135/90; PULSE 70; RESP 18; TEMP 97.5; O2SAT 96
[2024-08-27 11:05] LABS: GLUCOMETER DEV NAME(LOC) 3E.C; GLUCOSE,POINT OF CARE 267 MG/DL (70-110)
[2024-08-27 13:04] VITALS: BP 128/53; PULSE 65; RESP 19; TEMP 97.8; O2SAT 97
[2024-08-27 17:14] LABS: COVID AG,FIA SOURCE NASAL SWAB
[2024-08-27 17:30] LABS: GLUCOMETER DEV NAME(LOC) 3E.C; GLUCOSE,POINT OF CARE 354 MG/DL (70-110)
[2024-08-27 17:36] LABS: INFLUENZA TYPE A NEGATIVE FOR TYPE A (NEGATIVE); INFLUENZA TYPE B NEGATIVE FOR TYPE B (NEGATIVE); SARS-COV2 (COVID) ANTIGEN,FIA Negative (Negative)
[2024-08-27 18:40] VITALS: BP 161/71; PULSE 76; RESP 18; TEMP 97.7; O2SAT 97
[2024-08-27 20:21] LABS: GLUCOMETER DEV NAME(LOC) 3EX.2; GLUCOSE,POINT OF CARE 295 MG/DL (70-110)
[2024-08-27 21:14] VITALS: BP 120/74; PULSE 60; RESP 16; TEMP 97.8; O2SAT 95
[2024-08-27 21:36] LABS: BASOPHILS % (AUTO) 0.6 % (0.0-2.0); EOSINOPHILS % (AUTO) 1.7 % (1.0-6.0); HEMOGLOBIN 13.5 g/dL (12.0-16.0); LYMPHOCYTES # (AUTO) 0.8 K/uL (1.0-4.8); LYMPHOCYTES % (AUTO) 17.1 % (22.0-44.0); MEAN CORPUSCULAR HEMOGLOBIN 30.9 pg (26.0-34.0); MEAN CORPUSCULAR HGB CONC 33.7 G/dL (31.0-37.0); MEAN CORPUSCULAR VOLUME 92 fL (80-100); MONOCYTES # (AUTO) 0.4 K/uL (0.1-1.0); MONOCYTES % (AUTO) 9.6 % (2.0-9.0); NEUTROPHILS # (AUTO) 3.2 K/uL (1.8-7.7); PLATELET COUNT (AUTO) 284 K/uL (150-450); RED BLOOD CELL COUNT(AUTO) 4.37 MIL/uL (4.00-5.20); RED CELL DISTRIBUTION WIDTH 14.7 % (11.5-14.5); WHITE BLOOD COUNT (AUTO) 4.5 K/uL (4.5-11.0)
[2024-08-27 21:44] LABS: CALCIUM, TOTAL 8.9 mg/dL (8.8-10.5); CREATININE 1.02 mg/dL (0.60-1.30); POTASSIUM 3.8 mmol/L (3.5-5.1)
[2024-08-28] VITALS (8 sets, daily range): BP systolic 95–150; BP diastolic 51–65; PULSE 53–81; RESP 16–20; TEMP 97.8–98.3; O2SAT 94–100
[2024-08-28 06:16] LABS: GLUCOMETER DEV NAME(LOC) 3EX.2; GLUCOSE,POINT OF CARE 76 MG/DL (70-110)
[2024-08-28] MEDS ORDERED: 0.9% SODIUM CHLORIDE 5 ML NEB SOLUTION NEB ONE (09:37)
[2024-08-28 12:00] LABS: GLUCOMETER DEV NAME(LOC) 3E.C; GLUCOSE,POINT OF CARE 202 MG/DL (70-110)
[2024-08-28 18:11] LABS: GLUCOMETER DEV NAME(LOC) 3E.C; GLUCOSE,POINT OF CARE 198 MG/DL (70-110)
[2024-08-28 20:36] LABS: GLUCOMETER DEV NAME(LOC) 3EX.2; GLUCOSE,POINT OF CARE 333 MG/DL (70-110)
[2024-08-29 06:50] LABS: GLUCOMETER DEV NAME(LOC) 3E.C; GLUCOSE,POINT OF CARE 116 MG/DL (70-110)
[2024-08-29 08:20] VITALS: BP_SYST 66; PULSE 75; RESP 20; TEMP 98.1; O2SAT 96
[2024-08-29 11:31] LABS: GLUCOMETER DEV NAME(LOC) 3EX.2; GLUCOSE,POINT OF CARE 289 MG/DL (70-110)
[2024-08-29 16:50] LABS: GLUCOMETER DEV NAME(LOC) 3EX.2; GLUCOSE,POINT OF CARE 172 MG/DL (70-110)
[2024-08-29 20:41] LABS: GLUCOMETER DEV NAME(LOC) 3E.C; GLUCOSE,POINT OF CARE 278 MG/DL (70-110)
[2024-08-29 21:30] VITALS: BP 134/57; PULSE 69; RESP 18; TEMP 98.2; O2SAT 95
[2024-08-30 05:51] LABS: GLUCOMETER DEV NAME(LOC) 3E.C; GLUCOSE,POINT OF CARE 62 MG/DL (70-110)
[2024-08-30 06:21] LABS: GLUCOMETER DEV NAME(LOC) 3E.C; GLUCOSE,POINT OF CARE 84 MG/DL (70-110)
[2024-08-30 06:55] LABS: GLUCOMETER DEV NAME(LOC) 3E.C; GLUCOSE,POINT OF CARE 135 MG/DL (70-110)
[2024-08-30 07:00] VITALS: PULSE 60; RESP 20; O2SAT 95
[2024-08-30 07:12] VITALS: BP 150/89; PULSE 64; RESP 18; TEMP 97.9; O2SAT 97
[2024-08-30 07:15] VITALS: PULSE 64; RESP 20; O2SAT 97
[2024-08-30 08:17] VITALS: BP 148/56; PULSE 70; RESP 18; TEMP 98.2; O2SAT 93
[2024-08-30 11:45] LABS: GLUCOMETER DEV NAME(LOC) 3EX.2; GLUCOSE,POINT OF CARE 230 MG/DL (70-110)
[2024-08-30 16:51] LABS: GLUCOMETER DEV NAME(LOC) 3EX.2; GLUCOSE,POINT OF CARE 156 MG/DL (70-110)
[2024-08-30 20:26] LABS: GLUCOMETER DEV NAME(LOC) 3E.C; GLUCOSE,POINT OF CARE 271 MG/DL (70-110)
[2024-08-30 21:37] VITALS: BP 142/56; PULSE 61; RESP 18; TEMP 98.1; O2SAT 95
[2024-08-31] MEDS ORDERED: GLIM2TAB35 PO (11:50)
[2024-08-31] MEDS ORDERED: RISP0.5T80 PO (11:50)
[2024-09-02] MEDS ORDERED: HEPA500018 SQ (17:50)
[2024-09-02] MEDS ORDERED: ALBU2.5V39 NEB (17:51)
[2024-09-02] MEDS ORDERED: PANT-31 PO (17:52)
[2024-09-02] MEDS ORDERED: RISP-31 PO (17:53)
[2024-09-02] MEDS ORDERED: ACET-784 PO (17:54)
[2024-09-02] MEDS ORDERED: BISA-151 PO (17:55)
[2024-09-02] MEDS ORDERED: IPRA0.2S49 NEB (17:55)
[2024-09-02] MEDS ORDERED: MAGN-169 PO (17:56)
[2024-09-02] MEDS ORDERED: ZOLP-280 PO (17:56)
== END 2024-08-31 01:20 | disposition short-term general hospital (02) | DRG 885 ==
LOC: EMS 14:46 → 3EI 06-06 15:15 → 3EX 06-22 14:11
PROVIDERS: ADMIT Psychiatry & Neurology Child & Adolescent Psychiatry; ATTEND Psychiatry & Neurology Child & Adolescent Psychiatry
PROC: GZHZZZZ Group Psychotherapy (ICD-10-PCS; principal; 2024-06-07)
PROC: GZ52ZZZ Individual Psychotherapy, Cognitive (ICD-10-PCS; 2024-06-07)
PROC: GZ56ZZZ Individual Psychotherapy, Supportive (ICD-10-PCS; 2024-06-07)
DX: F25.0 Schizoaffective disorder, bipolar type (principal); E11.65 Type 2 diabetes mellitus with hyperglycemia; F02.818 Dementia in other diseases classified elsewhere, unspecified severity, with other behavioral disturbance; E66.9 Obesity, unspecified; G20.A1 Parkinson's disease without dyskinesia, without mention of fluctuations; I10 Essential (primary) hypertension; Z20.822 Contact with and (suspected) exposure to COVID-19; E78.5 Hyperlipidemia, unspecified; G47.00 Insomnia, unspecified; M81.0 Age-related osteoporosis without current pathological fracture; R09.82 Postnasal drip; Z79.83 Long term (current) use of bisphosphonates; Z79.84 Long term (current) use of oral hypoglycemic drugs; Z79.899 Other long term (current) drug therapy; Z91.81 History of falling; Z68.20 Body mass index [BMI] 20.0-20.9, adult; F29 Unspecified psychosis not due to a substance or known physiological condition
CPT/HCPCS: 71045; 71046; 80048; 80053; 80061; 80307; 81001; 82550; 82962; 83036; 83880; 84443; 84484; 85025; 87077; 87086; 87186; 87420; 87804; 93005; 94640; 97110; 97116; 97162; 97166; 97530; 97535; 99285; G0378; J1610; J1815; J3535; 36415-L1; 36415-TC; J7613

== ENCOUNTER 2024-09-22 19:11 | Inpatient (IN) | payer MEDICARE, MEDICAID ==
[~2024-09-22] VITALS: Ht 152.4 cm; Wt 49.1 kg
[~2024-09-22 19:11] MED LIST: ACET-784 PO; ALBU2.5V39 NEB; ALEN70TA65 PO; ATOR40TA28 PO; BISA-151 PO; CARV12 PO; EMPA25TA3 PO; FURO40TA6 PO; GLIM2TAB35 PO; HEPA500018 SQ; HYDR25TA84 PO; IPRA0.2S49 NEB; LOSA-382 PO; MAGN-169 PO; PANT-31 PO; RISP-31 PO; ZOLP-280 PO
[2024-09-22 20:09] LABS: BASOPHILS % (AUTO) 0.2 % (0.0-2.0); EOSINOPHILS % (AUTO) 1.6 % (1.0-6.0); HEMATOCRIT 37.5 % (36-46); HEMOGLOBIN 12.4 g/dL (12.0-16.0); LYMPHOCYTES % (AUTO) 19.6 % (22.0-44.0); MEAN CORPUSCULAR VOLUME 94 fL (80-100); MONOCYTES # (AUTO) 0.4 K/uL (0.1-1.0); MONOCYTES % (AUTO) 7.3 % (2.0-9.0); NEUTROPHILS # (AUTO) 3.5 K/uL (1.8-7.7); NEUTROPHILS % (AUTO) 71.3 % (40.0-70.0); PLATELET COUNT (AUTO) 334 K/uL (150-450); RED CELL DISTRIBUTION WIDTH 15.8 % (11.5-14.5); WHITE BLOOD COUNT (AUTO) 4.9 K/uL (4.5-11.0)
[2024-09-22 20:17] LABS: ANION GAP 7 mmol/L (8-16); CALCIUM, TOTAL 8.8 mg/dL (8.8-10.5); CARBON DIOXIDE 29 mmol/L (22-29); CHLORIDE 102 mmol/L (98-107); CREATININE 1.12 mg/dL (0.60-1.30); GLOMERULAR FILTR. RATE CALC 47 mL/min (>60); GLUCOSE,RANDOM 308 mg/dL (70-110); POTASSIUM 4.6 mmol/L (3.5-5.1); SODIUM SERUM 138 mmol/L (136-145); UREA NITROGEN, BLOOD 38 mg/dL (7-18)
[2024-09-22] MEDS ORDERED: HALOPERIDOL 5 MG TABLET PO PRN (20:45)
[2024-09-22] MEDS ORDERED: LORazepam 2 MG TABLET PO PRN (20:45)
[2024-09-22] MEDS ORDERED: ZOLPIDEM TARTRATE 10 MG TABLET PO PRN (20:45)
[2024-09-22 20:50] LABS: COVID AG,FIA SOURCE NASAL SWAB
[2024-09-22 20:50] LABS: ALCOHOL, BLOOD (SERUM) < 3 mg/dL (0-10)
[2024-09-22 20:55] LABS: GLUCOMETER DEV NAME(LOC) ERT.6; GLUCOSE,POINT OF CARE 290 MG/DL (70-110)
[2024-09-22 20:59] LABS: SARS-COV2 (COVID) ANTIGEN,FIA Negative (Negative)
[2024-09-22] MEDS: LORazepam 2 MG/ML VIAL IM ONE (23:33)
[2024-09-22] MEDS: HALOPERIDOL LACTATE 5 MG/ML VIAL IM ONE (23:34)
[2024-09-22] MEDS: DiphenhydrAMINE HCL 50 MG/ML VIAL IM ONE (23:35)
[2024-09-23 04:01] LABS: APPEARANCE,URINE CLEAR (CLEAR); BILIRUBIN,URINE NEGATIVE (NEGATIVE); COLOR,URINE LIGHT YELLOW (YELLOW); GLUCOSE, URINE (UA) >=1000 mg/dL (NEGATIVE); KETONES,URINE NEGATIVE (NEGATIVE); LEUKOCYTE ESTERASE ,URINE NEGATIVE (NEGATIVE); NITRATE,URINE NEGATIVE (NEGATIVE); OCCULT BLOOD,URINE NEGATIVE (NEGATIVE); PROTEIN,URINE NEGATIVE (NEGATIVE); SPECIFIC GRAVITIY, URINE 1.023 (1.003-1.030); UROBILINOGEN,URINE <=1.0 mg/dL (<=1.0)
[2024-09-23 04:05] LABS: ALCOHOL, URINE DRUG SCREEN NEGATIVE (NEGATIVE); AMPHET/METH SCREEN,URINE NEGATIVE (NEGATIVE); BARBITURATE SCREEN, URINE NEGATIVE (NEGATIVE); BENZODIAZEPINES SCREEN,URINE NEGATIVE (NEGATIVE); CANNABINOID SCREEN,URINE NEGATIVE (NEGATIVE); COCAINE SCREEN,URINE NEGATIVE (NEGATIVE); METHADONE SCREEN, URINE NEGATIVE (NEGATIVE); OPIATE SCREEN,URINE NEGATIVE (NEGATIVE); PHENCYCLIDINE SCREEN,URINE NEGATIVE (NEGATIVE)
[2024-09-23 04:39] LABS: RBC,URINE None Seen /HPF (0-2); WBC,URINE None Seen /HPF (0-5)
[2024-09-23 04:40] LABS: BACTERIA,URINE None Seen /HPF (None Seen); SQUAMOUS EPITHELIAL CELL,UR Few /LPF (None Seen)
[2024-09-23] MEDS: PETROLATUM,WHITE 5 GM PACKET JELLY TP ONE (15:05)
[2024-09-23] MEDS: HALOPERIDOL LACTATE 5 MG/ML VIAL IM ONE (16:19)
[2024-09-23] MEDS: LORazepam 2 MG/ML VIAL IM ONE (16:19)
[2024-09-23 21:58] VITALS: BP 138/65; PULSE 61; RESP 16; TEMP 97.8; O2SAT 97
[2024-09-24 07:10] LABS: GLUCOMETER DEV NAME(LOC) 3EX.2; GLUCOSE,POINT OF CARE 138 MG/DL (70-110)
[2024-09-24] MEDS ORDERED: NICOTINE 14 MG/24 HOUR PATCH TD PRN (07:30)
[2024-09-24] MEDS ORDERED: IBUPROFEN 400 MG TABLET PO PRN (07:30)
[2024-09-24] MEDS ORDERED: CloNIDine HCL 0.1 MG TABLET PO PRN (07:30)
[2024-09-24] MEDS ORDERED: DOCUSATE SODIUM 100 MG CAPSULE PO PRN (07:30)
[2024-09-24] MEDS ORDERED: ONDANSETRON 4 MG TABLET PO PRN (07:30)
[2024-09-24] MEDS ORDERED: PETROLATUM,WHITE 28 GM JELLY TP PRN (07:30)
[2024-09-24] MEDS ORDERED: LOPERAMIDE HCL 2 MG CAPSULE PO PRN (07:30)
[2024-09-24] MEDS ORDERED: GuaiFENesin/D-METHORPHAN [SUGAR-FREE] 200-20MG/10 ML SYRUP UDCUP PO PRN (07:30)
[2024-09-24] MEDS ORDERED: ACETAMINOPHEN 325 MG TABLET PO PRN (07:30)
[2024-09-24] MEDS ORDERED: MAG HYDROX/ALUMINUM HYD/SIMETH ES 30 ML SUSPENSION UDCUP PO PRN (07:30)
[2024-09-24 09:00] VITALS: BP 159/76; PULSE 73; RESP 17; TEMP 97.7; O2SAT 95
[2024-09-24] MEDS: HydrALAZINE HCL 25 MG TABLET PO SCH (09:00)
[2024-09-24] MEDS: CARVEDILOL 12.5 MG TABLET PO SCH (09:00)
[2024-09-24] MEDS: PANTOPRAZOLE SODIUM 40 MG DR TABLET PO SCH (09:55)
[2024-09-24] MEDS: FUROSEMIDE 40 MG TABLET PO SCH (09:55)
[2024-09-24] MEDS: EMPAGLIFLOZIN 25 MG TABLET PO SCH (09:58)
[2024-09-24] MEDS: LOSARTAN POTASSIUM 50 MG TABLET PO SCH (09:58)
[2024-09-24] MEDS: GLIMEPIRIDE 4 MG TABLET PO SCH (09:59)
[2024-09-24 11:50] LABS: GLUCOMETER DEV NAME(LOC) 3E.C; GLUCOSE,POINT OF CARE 208 MG/DL (70-110)
[2024-09-24 17:00] LABS: GLUCOMETER DEV NAME(LOC) 3E.C; GLUCOSE,POINT OF CARE 228 MG/DL (70-110)
[2024-09-24] MEDS: ATORVASTATIN CALCIUM 40 MG TABLET PO SCH (20:50)
[2024-09-24] MEDS: RisperiDONE 1 MG TABLET PO SCH (20:50)
[2024-09-24] MEDS: ALBUTEROL SULFATE HFA 90 MCG/PUFF 8 GM INHALER IH PRN (22:10)
[2024-09-24 22:32] VITALS: RESP 18; TEMP 98.7
[2024-09-25 06:55] LABS: GLUCOMETER DEV NAME(LOC) 3E.C; GLUCOSE,POINT OF CARE 137 MG/DL (70-110)
[2024-09-25 07:21] LABS: HEMOGLOBIN A1C 8.8 % (3.8-5.6)
[2024-09-25 07:37] LABS: CHOL/HDL RATIO 2.8 (3.9-5.7); THYROID STIMULATING HORMONE 1.13 uIU/mL (0.36-3.74)
[2024-09-25 08:00] VITALS: BP 137/66; PULSE 70; RESP 18; TEMP 97.8; O2SAT 97
[2024-09-25 17:00] LABS: GLUCOMETER DEV NAME(LOC) 3EX.2; GLUCOSE,POINT OF CARE 335 MG/DL (70-110)
[2024-09-25] MEDS ORDERED: DEXTROSE 50%-WATER 25 GM/50 ML SYRINGE IVP PRN (17:15)
[2024-09-25] MEDS: INSULIN LISPRO 100 UNITS/ML SQ PRN (17:23)
[2024-09-25 21:30] LABS: GLUCOMETER DEV NAME(LOC) 3E.C; GLUCOSE,POINT OF CARE 147 MG/DL (70-110)
[2024-09-25 21:35] VITALS: RESP 17
[2024-09-26 05:55] LABS: GLUCOMETER DEV NAME(LOC) 3E.C; GLUCOSE,POINT OF CARE 190 MG/DL (70-110)
[2024-09-26 09:00] VITALS: BP 129/89; PULSE 75; RESP 17; TEMP 97.6; O2SAT 98
[2024-09-26 11:45] LABS: GLUCOMETER DEV NAME(LOC) 3EX.2; GLUCOSE,POINT OF CARE 256 MG/DL (70-110)
[2024-09-26 16:55] LABS: GLUCOMETER DEV NAME(LOC) 3EX.2; GLUCOSE,POINT OF CARE 170 MG/DL (70-110)
[2024-09-26 17:16] VITALS: BP 130/52; PULSE 71; RESP 17; O2SAT 97
[2024-09-26 20:30] LABS: GLUCOMETER DEV NAME(LOC) 3E.C; GLUCOSE,POINT OF CARE 218 MG/DL (70-110)
[2024-09-26 22:58] VITALS: BP 128/69; PULSE 73; RESP 18; TEMP 96.9; O2SAT 96
[2024-09-27] MEDS: ALENDRONATE SODIUM 70 MG TABLET PO SCH (06:49)
[2024-09-27 06:51] LABS: GLUCOMETER DEV NAME(LOC) 3E.C; GLUCOSE,POINT OF CARE 118 MG/DL (70-110)
[2024-09-27 08:30] VITALS: BP 125/64; PULSE 71; RESP 17; TEMP 97.5; O2SAT 97
[2024-09-27 11:45] LABS: GLUCOMETER DEV NAME(LOC) 3EX.2; GLUCOSE,POINT OF CARE 270 MG/DL (70-110)
[2024-09-27] MEDS: MAGNESIUM HYDROXIDE SUSPENSION 30 ML UDCUP PO PRN (16:39)
[2024-09-27 16:41] LABS: GLUCOMETER DEV NAME(LOC) 3EX.2; GLUCOSE,POINT OF CARE 297 MG/DL (70-110)
[2024-09-27 21:45] VITALS: RESP 18
[2024-09-28 06:56] LABS: GLUCOMETER DEV NAME(LOC) 3E.C; GLUCOSE,POINT OF CARE 166 MG/DL (70-110)
[2024-09-28 09:29] VITALS: BP 144/58; PULSE 67; RESP 18; TEMP 97.9; O2SAT 98
[2024-09-28 11:16] LABS: GLUCOMETER DEV NAME(LOC) 3EX.2; GLUCOSE,POINT OF CARE 319 MG/DL (70-110)
[2024-09-28 17:20] LABS: GLUCOMETER DEV NAME(LOC) 3EX.2; GLUCOSE,POINT OF CARE 106 MG/DL (70-110)
== END 2024-09-28 19:47 | DRG 884 ==
LOC: EMS 19:11 → 3EX 09-23 21:54
PROVIDERS: ADMIT Psychiatry & Neurology Child & Adolescent Psychiatry; ATTEND Psychiatry & Neurology Child & Adolescent Psychiatry
PROC: GZHZZZZ Group Psychotherapy (ICD-10-PCS; principal; 2024-09-24)
PROC: GZ52ZZZ Individual Psychotherapy, Cognitive (ICD-10-PCS; 2024-09-24)
DX: F03.918 Unspecified dementia, unspecified severity, with other behavioral disturbance (principal); F03.92 Unspecified dementia, unspecified severity, with psychotic disturbance; I10 Essential (primary) hypertension; E11.51 Type 2 diabetes mellitus with diabetic peripheral angiopathy without gangrene; E78.00 Pure hypercholesterolemia, unspecified; F41.9 Anxiety disorder, unspecified; Z20.822 Contact with and (suspected) exposure to COVID-19; E78.5 Hyperlipidemia, unspecified; M81.0 Age-related osteoporosis without current pathological fracture; K21.9 Gastro-esophageal reflux disease without esophagitis; Z86.73 Personal history of transient ischemic attack (TIA), and cerebral infarction without residual deficits; Z79.899 Other long term (current) drug therapy
CPT/HCPCS: 70450; 80048; 80061; 80307; 81001; 82962; 83036; 84443; 85025; 87081; 87481; 96372; 99285; G0378; G0480; J1200; J1630; J2060; J3535